=== PATIENT | female | born 1985 | race Asian ===

== ENCOUNTER 2023-07-12 17:43 | Inpatient (IN) ==
[2023-07-12] MEDS ORDERED: SODIUM CHLORIDE 0.9% 250 ML IV PRN (23:47)
[2023-07-12] MEDS ORDERED: OXYTOCIN 30 UNITS/NSS 30 UNITS/500 ML BAG IV PRN ×2 (23:47)
[2023-07-12] MEDS ORDERED: LIDOCAINE 1% LOCAL 20 ML VIAL INFIL PRN (23:47)
[2023-07-13 00:16] LABS: Hematocrit (blood only) 38.5 % (37.0-47.0); Hemoglobin 13.3 g/dl (12.0-16.0); Mean Corpuscular Hemoglobin 32.1 pg (25.0-34.0); Mean Corpuscular Hgb Conc 34.5 g/dL (32.0-36.0); Mean Platelet Volume 11.9 fL (9.4-12.4); Platelet Count 167 K/uL (130-400); RDW Coefficient of Variation 14.9 % (11.5-14.5); RDW Standard Deviation 50.8 fL (36.4-46.3); Red Blood Count 4.14 M/uL (4.20-5.40); White Blood Count 7.58 K/ul (4.8-10.8)
--- NOTE | 2023-07-13 00:36 | History & Physical Report ---
Date of Service July 13, 2023 Assessment & Plan (1) Insulin controlled gestational diabetes mellitus (GDM) during : (2) Fibroids: (3) Hypothyroid in , antepartum: Plan 38 yo at 41 wga presents for IOL for A2GDM VSS Fetus cat 1 Labor - 35cc pichardo placed, pt tolerated well. Will start pit A2GDM - q2h bg, q1 in active labor GBS neg epidural prn Admission and Anticipated Discharge Date Admission Date: July 12, 2023 History of Present Illness Chief Complaint: IOL Primary Care Provider: Faviola Duke MD 38 yo at 41 wga presents for IOL for A2GDM. +FM; denies regular ctx, LOF, VB PNI: A2GDM Hx laparoscopic myomectomy for pedunculated fibroid Hypothyroid AMA Past CLAIMS PROCESSOR Hx: G1 2021 sab G2 current q31-33d cycles 12/2022 neg cotest Allergies Allergy/AdvReac Type Severity Reaction Status Date / Time Latex, Natural Rubber Allergy Mild Rash Verified 07/12/23 23:44 Sulfa (Sulfonamide AdvReac Mild flu like Verified 07/12/23 23:44 Antibiotics) symptoms Home Medications Medication Instructions Recorded Confirmed Type cgyetfzr-lqd-Hj-FA 1 mg 1 tab PO BID 05/14/22 07/12/23 History tablet aspirin 81 mg tablet,delayed 81 mg PO DAILY #30 tabs 04/23/23 07/12/23 Rx release levothyroxine 25 mcg tablet 25 mcg PO QAM #90 tabs 04/24/23 07/12/23 Rx blood-glucose sensor (FreeStyle #2 ea 05/20/23 07/11/23 Rx Abimael 3 Sensor device) pen needle, diabetic 32 gauge x #100 ea 06/07/23 07/11/23 Rx 5/32" (BD Ultra-Fine María Pen Needle) Patient History Medical History (Updated 07/12/23 @ 23:43 by Barbara Dewitt RN) Fibroid, uterine Right lateral fibroid 7cm Gestational diabetes On insulin Hypothyroid on medications History of chicken pox Hemoperitoneum Surgical History S/P myomectomy laparoscopic, did not disrupt myometrium per 05/2022 note Status post hysteroscopic polypectomy H/O wisdom tooth extraction Family History Mother Depression Hypertension Dyslipidemia Father Dementia Diabetes Gout Kidney disease Brother No problems noted. Brother No problems noted. Brother No problems noted. Sister No problems noted. 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 Beliefs That Will Affect Care: None marital status: marital status details: Asa Zimmerman (35) [phone] Current Living Situation: Spouse Current Living Situation Comment: Lives with Asa current occupational status: employed current occupation: [employer] How many Children do You have: 0 Feels Safe at Home: Yes Safety Concerns: Feels Safe At This Time Childhood Exposure to Second-Hand Smoke: Yes Diet: regular caffeine: No during the past year weight has: increased > 10 lbs Dental Care, Regularly: Yes Physical Activity Frequency: 1-2 Times per Week Seatbelt Use: always Sunscreen Use: Yes Assistive Devices: None Physical Exam Genitourinary: OB Exam Abdomen: + vertex and + estimated weight (8) Manual OB Exam: + cervical dilation 1 cm, + cervical effacement 50% and + station high OB Exam Monitor Tracing: + external FHT monitor used, + external uterine monitor used and + category I 35cc pichardo placed, pt tolerated well Results & Data Vital Signs (Past 12 Hours) Vital Signs Temp Pulse Resp BP 07/12/23 23:42 97.9 F 18 07/12/23 23:33 65 119/69 Laboratory Results OB Labs: Blood Type AB Positive 12/14/22 Antibody Screen NEGATIVE 12/14/22 Hemoglobin 12.3 g/dl (12.0-16.0) 04/25/23 Hematocrit 37.8 % (37.0-47.0) 04/25/23 Mean Corpuscular Volume 94.7 fL (80.0-100.0) 12/14/22 Platelet Count 235 K/uL (130-400) 12/14/22 Rubella IgG Antibody Immune (Immune) 12/14/22 Rapid Plasma Reagin Nonreactive (Nonreactive) 12/14/22 Hepatitis B Surface Antigen. NON-REACTIVE (NON-REACTIVE) 12/14/22 Hepatitis C Antibody (EIA) NON-REACTIVE (NON-REACTIVE) 12/14/22 HIV (1&2) Ag and Ab Confirmation NON-REACTIVE (NON-REACTIVE) 12/14/22 Glucose 1 Hour 50 gm Load 220 mg/dl (70-130) H 04/25/23 OB Optional Labs: Chlamydia trachomatis RNA Not Detected (NotDetected) 12/13/22 Neisseria gonorrhoeae RNA Not Detected (NotDetected) 12/13/22 Thyroid Stimulating Hormone (TSH) 0.143 uIu/ml (0.300-4.500) L 05/23/23 Labs Reviewed: -declines cfdna, horizon - sln declines qs--akh GBS neg Diagnostic Findings 06/20 EFW 85%, ~4.7cm fibroid, ant plac Coding Level of Care Code None Diagnoses Insulin controlled gestational diabetes mellitus (GDM) during O24.414 Fibroids D21.9 Hypothyroid in , antepartum O99.280; E03.9
[2023-07-13] MEDS: LACTATED RINGER'S 1,000 ML IV PRN ×3 (01:00→16:17)
[2023-07-13] MEDS ORDERED: BUTORPHANOL TARTRATE 1 MG/ML VIAL ONE (06:40)
[2023-07-13] MEDS ORDERED: BUTORPHANOL TARTRATE 1 MG/ML VIAL IV STA (06:41)
[2023-07-13] MEDS ORDERED: ePHEDrine sulfate 50 MG/ML AMP ONE (07:36)
[2023-07-13] MEDS ORDERED: BUPIVACAINE 0.25% PF 30 ML VIAL ONE (07:36)
[2023-07-13] MEDS ORDERED: LIDOCAINE 2%/EPINEPHRINE 1:200,000 20 ML PF ONE (07:36)
[2023-07-13] MEDS ORDERED: SODIUM CHLORIDE 0.9% PF INJ 10 ML VIAL ONE (07:36)
[2023-07-13] MEDS ORDERED: fentaNYL citrate PF 100 MCG/2 ML VIAL ONE (07:36)
[2023-07-13] MEDS ORDERED: fentANYL 2 MCG/ML BUPIVacaine 0.125%-NSS 100ML BAG ONE (07:36)
--- NOTE | 2023-07-13 07:40 | Anesthesiology Consultation ---
Date of Service July 13, 2023 Assessment & Plan Chart Review Chart Review: Acceptable Risk for Surgery and Patient NOT seen in Pre Admission Testing Consults Requested none ASA ASA2 Proposed Anesthesia Anesthesia Type: Labor Epidural and CSE History Height/Weight Height: 5 ft 5 in Weight: 63.049 kg Allergies Allergy/AdvReac Type Severity Reaction Status Date / Time Latex, Natural Rubber Allergy Mild Rash Verified 07/12/23 23:44 Sulfa (Sulfonamide AdvReac Mild flu like Verified 07/12/23 23:44 Antibiotics) symptoms Medications Home Medications Medication Instructions Recorded Confirmed Last Taken fdzujiyf-gwg-Kk-FA 1 mg 1 tab PO BID 05/14/22 07/12/23 07/12/23 tablet aspirin 81 mg tablet,delayed 81 mg PO DAILY #30 tabs 04/23/23 07/12/23 07/12/23 release levothyroxine 25 mcg tablet 25 mcg PO QAM #90 tabs 04/24/23 07/12/23 07/12/23 blood-glucose sensor (FreeStyle #2 ea 05/20/23 07/11/23 Unknown Abimael 3 Sensor device) pen needle, diabetic 32 gauge x #100 ea 06/07/23 07/11/23 Unknown " (BD Ultra-Fine María Pen Needle) Active Medications Generic Name Dose Route Start Last Admin Trade Name Lisa PRN Reason Stop Dose Admin Oxytocin 30 units in 500 mls @ 12 mls/hr 07/12/23 23:47 07/13/23 07:01 Pitocin 30 Units/Nss IV 07/14/23 23:46 0.72 units/hr .Q24H PRN 12 mls/hr Labor Induction/Augmentation Titration Protocol 0.72 UNITS/HR Lactated Ringer's 1,000 mls @ 125 mls/hr 07/12/23 23:47 07/13/23 07:01 Lr IV 07/14/23 23:46 125 mls/hr .Q8H PRN Infusion L&D Protocol Protocol Past Medical History Medical History Fibroid, uterine Right lateral fibroid 7cm Gestational diabetes On insulin Hypothyroid on medications History of chicken pox Hemoperitoneum Exercise / Class Metabolic Activity II 4-5 Yardwork/Stairs/Walk up hill Past Family History Family History Mother Depression Hypertension Dyslipidemia Father Dementia Diabetes Gout Kidney disease Brother No problems noted. Brother No problems noted. Brother No problems noted. Sister No problems noted. Denies family history of Ovarian cancer Prostate cancer Myocardial infarction Breast cancer Colorectal cancer Past Surgical History Surgical History S/P myomectomy laparoscopic, did not disrupt myometrium per 05/2022 note Status post hysteroscopic polypectomy H/O wisdom tooth extraction Past Anesthesia History No Hx of Anesthesia Complications and No Family Hx of Anesthesia Complications History of PONV No Hx of PONV and No Hx of Motion Sickness Social History Smoking Status: Never smoker Do You Dip or Chew Tobacco: No Hx Alcohol Use: No Hx Substance Use: No substance use type: does not use Physical Exam Vital Signs Last Vital Signs Temp 36.4 C L 07/13/23 07:00 Pulse 64 07/13/23 07:04 Resp 16 07/13/23 07:00 BP 123/77 07/13/23 07:04 Testing Laboratory Results 07/13/23 00:03 Blood Type AB Positive 07/13/23 00:03 Antibody Screen NEGATIVE 07/13/23 00:03 07/13/23 07/13/23 02:32 00:38 POC Glucose 84 88
[2023-07-13] MEDS ORDERED: NALBUPHINE HCL 5 MG in SYRINGE 0 ML IV PRN (08:31)
[2023-07-13] MEDS ORDERED: fentANYL 2 MCG/ML BUPIVacaine 0.125%-NSS 100ML BAG EPI PRN (08:31)
[2023-07-13] MEDS ORDERED: diphenhydrAMINE 50 MG/ML VIAL IV PRN (08:31)
[2023-07-13] MEDS ORDERED: fentaNYL citrate PF 100 MCG/2 ML VIAL EPI STA (08:31)
[2023-07-13] MEDS ORDERED: PROMETHAZINE HCL 25 MG in SODIUM CHLORIDE 0.9% 50 ML IV PRN (08:31)
[2023-07-13] MEDS ORDERED: LIDOCAINE 2% MPF LOCAL 5 ML VIAL EPI PRN (08:31)
[2023-07-13] MEDS ORDERED: BUPIVACAINE 0.25% PF 30 ML VIAL EPI PRN (08:31)
[2023-07-13] MEDS ORDERED: ONDANSETRON INJ 2 MG/ML 2 ML VIAL IV PRN (08:31)
[2023-07-13] MEDS ORDERED: NALOXONE HCL 0.4 MG/1 ML VIAL/CARP IV PRN (08:31)
[2023-07-13] MEDS ORDERED: ePHEDrine sulfate 50 MG/ML AMP IV PRN (08:31)
[2023-07-13] MEDS ORDERED: SODIUM CHLORIDE 0.9% PF INJ 10 ML VIAL EPI PRN (08:31)
[2023-07-13] MEDS ORDERED: BUPIVACAINE 0.25% PF 30 ML VIAL EPI STA (08:31)
[2023-07-13] MEDS ORDERED: NALOXONE HCL 1 MG in SODIUM CHLORIDE 0.9% 1,000 ML IV PRN (08:31)
[2023-07-13] MEDS ORDERED: ROPIVACAINE 0.5% PF 5 MG/ML 20 ML VIAL EPI PRN (08:31)
[2023-07-13] MEDS ORDERED: LIDOCAINE 2%/EPINEPHRINE 1:200,000 20 ML PF EPI STA (08:31)
[2023-07-13] MEDS ORDERED: SODIUM CHLORIDE 0.9% PF INJ 10 ML VIAL EPI STA (08:31)
[2023-07-13] MEDS ORDERED: fentaNYL citrate PF 100 MCG/2 ML VIAL EPI PRN (08:31)
--- NOTE | 2023-07-13 13:01 | Labor Progress Brief Note ---
Date of Service July 13, 2023 Subjective Comfortable with epidural, some pressure. SVE 6/80/0 FHT Cat 1 [place] Q 2 SROM clear fluid Assessment & Plan Admission and Anticipated Discharge Date Admission Date: July 12, 2023 Results & Data Vital Signs (Past 12 Hours) Vital Signs Temp Pulse Resp BP Pulse Ox 07/13/23 12:58 64 100 07/13/23 12:53 68 100 07/13/23 12:52 65 126/74 07/13/23 12:48 59 L 100 07/13/23 12:43 73 100 07/13/23 12:38 66 100 07/13/23 12:37 67 107/60 07/13/23 12:33 69 100 07/13/23 12:28 69 100 07/13/23 12:23 67 100 07/13/23 12:21 66 121/75 07/13/23 12:18 71 99 07/13/23 12:13 67 100 07/13/23 12:08 67 100 07/13/23 12:06 65 110/68 07/13/23 12:03 66 100 07/13/23 11:58 66 100 07/13/23 11:53 65 100 07/13/23 11:51 65 110/71 07/13/23 11:48 65 100 07/13/23 11:43 66 100 07/13/23 11:38 63 100 07/13/23 11:37 64 117/69 07/13/23 11:33 64 100 07/13/23 11:28 64 100 07/13/23 11:23 64 100 07/13/23 11:21 64 110/71 07/13/23 11:18 64 100 07/13/23 11:13 65 100 07/13/23 11:08 66 100 07/13/23 11:06 65 119/70 07/13/23 11:03 64 100 07/13/23 10:58 67 100 07/13/23 10:53 68 100 07/13/23 10:51 71 122/81 07/13/23 10:48 66 99 07/13/23 10:43 66 99 07/13/23 10:38 70 100 07/13/23 10:36 69 108/70 07/13/23 10:33 67 100 07/13/23 10:28 67 99 07/13/23 10:23 71 99 07/13/23 10:21 62 111/70 07/13/23 10:18 62 99 07/13/23 10:15 18 07/13/23 10:15 36.4 C L 18 07/13/23 10:13 71 99 07/13/23 10:08 67 99 07/13/23 10:07 63 100/58 L 07/13/23 10:03 63 99 07/13/23 09:58 65 99 07/13/23 09:53 62 99 07/13/23 09:50 65 97/57 L 07/13/23 09:48 62 98 07/13/23 09:43 62 98 07/13/23 09:38 60 98 07/13/23 09:35 62 101/59 L 07/13/23 09:33 57 L 97 07/13/23 09:28 65 98 07/13/23 09:23 64 98 07/13/23 09:20 62 99/57 L 07/13/23 09:18 63 98 07/13/23 09:13 62 98 07/13/23 09:08 62 98 07/13/23 09:06 63 102/60 07/13/23 09:03 64 98 07/13/23 08:58 68 98 07/13/23 08:53 64 98 07/13/23 08:50 61 101/55 L 07/13/23 08:48 65 98 07/13/23 08:43 67 99 07/13/23 08:38 65 99 07/13/23 08:35 62 104/57 L 07/13/23 08:33 67 99 07/13/23 08:32 67 100/55 L 07/13/23 08:29 68 99/55 L 07/13/23 08:28 100 07/13/23 08:28 68 07/13/23 08:28 70 101/59 L 07/13/23 08:26 67 108/60 07/13/23 08:25 60 102/59 L 07/13/23 08:23 69 101/59 L 99 07/13/23 08:21 68 112/62 07/13/23 08:20 68 117/68 07/13/23 08:18 64 100 07/13/23 08:17 69 128/78 07/13/23 08:13 69 100 12/09/23 08:11 70 130/78 07/13/23 08:08 72 100 07/13/23 08:03 68 124/75 99 07/13/23 07:58 67 100 07/13/23 07:53 69 98 07/13/23 07:50 64 110/74 07/13/23 07:48 67 98 07/13/23 07:43 65 99 07/13/23 07:04 64 123/77 07/13/23 07:00 16 07/13/23 07:00 36.4 C L 16 07/13/23 06:02 61 107/68 07/13/23 05:02 68 104/61 07/13/23 04:02 65 107/68 07/13/23 03:02 65 117/65 07/13/23 03:00 18 07/13/23 03:00 36.6 C 18 07/13/23 02:02 65 107/58 L 07/13/23 01:02 63 120/74 Coding Level of Care Code None
--- NOTE | 2023-07-13 16:55 | Labor Progress Brief Note ---
Date of Service July 13, 2023 Subjective FHT Cat 1, [place] Q 2 SVE 9/100/+1 Continue labor, will begin to push when she feels urge. Assessment & Plan Admission and Anticipated Discharge Date Admission Date: July 12, 2023 Results & Data Vital Signs (Past 12 Hours) Vital Signs Temp Pulse Resp BP Pulse Ox 07/13/23 16:51 75 128/62 07/13/23 16:48 75 100 07/13/23 16:43 77 100 07/13/23 16:38 75 99 07/13/23 16:36 76 117/65 07/13/23 16:33 79 100 07/13/23 16:28 75 100 07/13/23 16:23 76 100 07/13/23 16:20 75 118/70 07/13/23 16:18 74 100 07/13/23 16:13 77 100 07/13/23 16:08 74 100 07/13/23 16:05 74 119/74 07/13/23 16:03 78 99 07/13/23 15:58 78 99 07/13/23 15:53 75 99 07/13/23 15:52 73 119/71 07/13/23 15:48 74 100 07/13/23 15:43 78 100 07/13/23 15:38 77 100 07/13/23 15:37 74 111/66 07/13/23 15:33 77 99 07/13/23 15:28 76 99 07/13/23 15:23 76 100 07/13/23 15:22 72 117/68 07/13/23 15:18 78 98 07/13/23 15:13 73 100 07/13/23 15:08 75 100 07/13/23 15:05 73 115/69 07/13/23 15:03 70 100 07/13/23 14:58 71 100 07/13/23 14:53 71 100 07/13/23 14:51 70 117/67 07/13/23 14:48 72 100 07/13/23 14:43 73 100 07/13/23 14:38 73 100 07/13/23 14:36 73 122/71 07/13/23 14:33 74 100 07/13/23 14:28 71 100 07/13/23 14:23 81 100 07/13/23 14:22 77 129/77 07/13/23 14:18 85 100 07/13/23 14:13 73 100 07/13/23 14:08 81 96 07/13/23 14:07 71 125/74 07/13/23 14:03 69 100 07/13/23 13:58 75 100 07/13/23 13:53 67 100 07/13/23 13:51 70 121/70 07/13/23 13:48 70 99 07/13/23 13:43 65 99 07/13/23 13:38 68 100 07/13/23 13:36 67 119/67 07/13/23 13:33 66 100 07/13/23 13:28 67 100 07/13/23 13:23 68 100 07/13/23 13:20 64 117/71 07/13/23 13:18 69 100 07/13/23 13:13 67 100 07/13/23 13:08 68 100 07/13/23 13:07 68 120/75 07/13/23 13:03 68 100 07/13/23 12:58 64 100 07/13/23 12:53 68 100 07/13/23 12:52 65 126/74 07/13/23 12:48 59 L 100 07/13/23 12:43 73 100 07/13/23 12:38 66 100 07/13/23 12:37 67 107/60 07/13/23 12:33 69 100 07/13/23 12:28 69 100 07/13/23 12:23 67 100 07/13/23 12:21 66 121/75 07/13/23 12:18 71 99 07/13/23 12:13 67 100 07/13/23 12:08 67 100 07/13/23 12:06 65 110/68 07/13/23 12:03 66 100 07/13/23 11:58 66 100 07/13/23 11:53 65 100 07/13/23 11:51 65 110/71 07/13/23 11:48 65 100 07/13/23 11:43 66 100 07/13/23 11:38 63 100 07/13/23 11:37 64 117/69 07/13/23 11:33 64 100 07/13/23 11:28 64 100 07/13/23 11:23 64 100 07/13/23 11:21 64 110/71 07/13/23 11:18 64 100 07/13/23 11:13 65 100 07/13/23 11:08 66 100 07/13/23 11:06 65 119/70 07/13/23 11:03 64 100 07/13/23 10:58 67 100 07/13/23 10:53 68 100 07/13/23 10:51 71 122/81 07/13/23 10:48 66 99 07/13/23 10:43 66 99 07/13/23 10:38 70 100 07/13/23 10:36 69 108/70 07/13/23 10:33 67 100 07/13/23 10:28 67 99 07/13/23 10:23 71 99 07/13/23 10:21 62 111/70 07/13/23 10:18 62 99 07/13/23 10:15 18 07/13/23 10:15 36.4 C L 18 07/13/23 10:13 71 99 07/13/23 10:08 67 99 07/13/23 10:07 63 100/58 L 07/13/23 10:03 63 99 07/13/23 09:58 65 99 07/13/23 09:53 62 99 07/13/23 09:50 65 97/57 L 07/13/23 09:48 62 98 07/13/23 09:43 62 98 07/13/23 09:38 60 98 07/13/23 09:35 62 101/59 L 07/13/23 09:33 57 L 97 07/13/23 09:28 65 98 07/13/23 09:23 64 98 07/13/23 09:20 62 99/57 L 07/13/23 09:18 63 98 07/13/23 09:13 62 98 07/13/23 09:08 62 98 07/13/23 09:06 63 102/60 07/13/23 09:03 64 98 07/13/23 08:58 68 98 07/13/23 08:53 64 98 07/13/23 08:50 61 101/55 L 07/13/23 08:48 65 98 07/13/23 08:43 67 99 07/13/23 08:38 65 99 07/13/23 08:35 62 104/57 L 07/13/23 08:33 67 99 07/13/23 08:32 67 100/55 L 07/13/23 08:29 68 99/55 L 07/13/23 08:28 100 07/13/23 08:28 68 07/13/23 08:28 70 101/59 L 07/13/23 08:26 67 108/60 07/13/23 08:25 60 102/59 L 07/13/23 08:23 69 101/59 L 99 07/13/23 08:21 68 112/62 07/13/23 08:20 68 117/68 07/13/23 08:18 64 100 07/13/23 08:17 69 128/78 07/13/23 08:13 69 100 07/13/23 08:11 70 130/78 07/13/23 08:08 72 100 07/13/23 08:03 68 124/75 99 07/13/23 07:58 67 100 07/13/23 07:53 69 98 07/13/23 07:50 64 110/74 07/13/23 07:48 67 98 07/13/23 07:43 65 99 07/13/23 07:04 64 123/77 07/13/23 07:00 16 07/13/23 07:00 36.4 C L 16 07/13/23 06:02 61 107/68 07/13/23 05:02 68 104/61 Coding Level of Care Code None
--- NOTE | 2023-07-13 18:47 | Labor Progress Brief Note ---
Date of Service July 13, 2023 Assessment & Plan Admission and Anticipated Discharge Date Admission Date: July 12, 2023 Physical Exam Physical Exam: Feeling cramping with contractions. FHT Cat 1 [place] Q 2 SVE 10/100/+1 Will start pushing. Results & Data Vital Signs (Past 12 Hours) Vital Signs Temp Pulse Resp BP Pulse Ox 07/13/23 18:44 83 100 07/13/23 18:41 93 H 91 07/13/23 18:38 83 99 07/13/23 18:37 80 128/56 L 07/13/23 18:33 79 99 07/13/23 18:28 77 100 07/13/23 18:23 84 100 07/13/23 18:21 82 127/71 07/13/23 18:18 77 100 07/13/23 18:13 78 99 07/13/23 18:08 77 99 07/13/23 18:05 82 128/71 07/13/23 18:03 79 100 07/13/23 17:58 85 100 07/13/23 17:53 76 99 07/13/23 17:51 78 123/64 07/13/23 17:48 82 100 07/13/23 17:45 16 07/13/23 17:45 36.9 C 16 07/13/23 17:43 76 99 07/13/23 17:38 80 100 07/13/23 17:37 79 130/67 07/13/23 17:33 76 100 07/13/23 17:28 79 98 07/13/23 17:23 98 07/13/23 17:23 82 07/13/23 17:23 79 109/61 07/13/23 17:18 79 99 07/13/23 17:13 77 100 07/13/23 17:08 83 100 07/13/23 17:07 77 128/66 07/13/23 17:03 76 99 07/13/23 16:58 79 99 07/13/23 16:53 77 100 07/13/23 16:51 75 128/62 07/13/23 16:48 75 100 07/13/23 16:43 77 100 07/13/23 16:38 75 99 07/13/23 16:36 76 117/65 07/13/23 16:33 79 100 12/09/23 16:28 75 100 07/13/23 16:23 76 100 07/13/23 16:20 75 118/70 07/13/23 16:18 74 100 07/13/23 16:13 77 100 07/13/23 16:08 74 100 07/13/23 16:05 74 119/74 07/13/23 16:03 78 99 07/13/23 15:58 78 99 07/13/23 15:53 75 99 07/13/23 15:52 73 119/71 07/13/23 15:48 74 100 07/13/23 15:43 78 100 07/13/23 15:38 77 100 07/13/23 15:37 74 111/66 07/13/23 15:33 77 99 07/13/23 15:28 76 99 07/13/23 15:23 76 100 07/13/23 15:22 72 117/68 07/13/23 15:18 78 98 07/13/23 15:13 73 100 07/13/23 15:08 75 100 07/13/23 15:05 73 115/69 07/13/23 15:03 70 100 07/13/23 14:58 71 100 07/13/23 14:53 71 100 07/13/23 14:51 70 117/67 07/13/23 14:48 72 100 07/13/23 14:43 73 100 07/13/23 14:38 73 100 07/13/23 14:36 73 122/71 07/13/23 14:33 74 100 07/13/23 14:28 71 100 07/13/23 14:23 81 100 07/13/23 14:22 77 129/77 07/13/23 14:18 85 100 07/13/23 14:13 73 100 07/13/23 14:08 81 96 07/13/23 14:07 71 125/74 07/13/23 14:03 69 100 07/13/23 13:58 75 100 07/13/23 13:53 67 100 07/13/23 13:51 70 121/70 07/13/23 13:48 70 99 07/13/23 13:43 65 99 07/13/23 13:38 68 100 07/13/23 13:36 67 119/67 07/13/23 13:33 66 100 07/13/23 13:28 67 100 07/13/23 13:23 68 100 07/13/23 13:20 64 117/71 07/13/23 13:18 69 100 07/13/23 13:13 67 100 07/13/23 13:08 68 100 07/13/23 13:07 68 120/75 07/13/23 13:03 68 100 07/13/23 12:58 64 100 07/13/23 12:53 68 100 07/13/23 12:52 65 126/74 07/13/23 12:48 59 L 100 07/13/23 12:43 73 100 07/13/23 12:38 66 100 07/13/23 12:37 67 107/60 07/13/23 12:33 69 100 07/13/23 12:28 69 100 07/13/23 12:23 67 100 07/13/23 12:21 66 121/75 07/13/23 12:18 71 99 07/13/23 12:13 67 100 07/13/23 12:08 67 100 07/13/23 12:06 65 110/68 07/13/23 12:03 66 100 07/13/23 11:58 66 100 07/13/23 11:53 65 100 07/13/23 11:51 65 110/71 07/13/23 11:48 65 100 07/13/23 11:43 66 100 07/13/23 11:38 63 100 07/13/23 11:37 64 117/69 07/13/23 11:33 64 100 07/13/23 11:28 64 100 07/13/23 11:23 64 100 07/13/23 11:21 64 110/71 07/13/23 11:18 64 100 07/13/23 11:13 65 100 07/13/23 11:08 66 100 07/13/23 11:06 65 119/70 07/13/23 11:03 64 100 07/13/23 10:58 67 100 07/13/23 10:53 68 100 07/13/23 10:51 71 122/81 07/13/23 10:48 66 99 07/13/23 10:43 66 99 07/13/23 10:38 70 100 07/13/23 10:36 69 108/70 07/13/23 10:33 67 100 07/13/23 10:28 67 99 07/13/23 10:23 71 99 07/13/23 10:21 62 111/70 07/13/23 10:18 62 99 07/13/23 10:15 18 07/13/23 10:15 36.4 C L 18 07/13/23 10:13 71 99 07/13/23 10:08 67 99 07/13/23 10:07 63 100/58 L 07/13/23 10:03 63 99 07/13/23 09:58 65 99 07/13/23 09:53 62 99 07/13/23 09:50 65 97/57 L 07/13/23 09:48 62 98 07/13/23 09:43 62 98 07/13/23 09:38 60 98 07/13/23 09:35 62 101/59 L 07/13/23 09:33 57 L 97 07/13/23 09:28 65 98 07/13/23 09:23 64 98 07/13/23 09:20 62 99/57 L 07/13/23 09:18 63 98 07/13/23 09:13 62 98 07/13/23 09:08 62 98 07/13/23 09:06 63 102/60 07/13/23 09:03 64 98 07/13/23 08:58 68 98 07/13/23 08:53 64 98 07/13/23 08:50 61 101/55 L 07/13/23 08:48 65 98 07/13/23 08:43 67 99 07/13/23 08:38 65 99 07/13/23 08:35 62 104/57 L 07/13/23 08:33 67 99 07/13/23 08:32 67 100/55 L 07/13/23 08:29 68 99/55 L 07/13/23 08:28 100 07/13/23 08:28 68 07/13/23 08:28 70 101/59 L 07/13/23 08:26 67 108/60 07/13/23 08:25 60 102/59 L 07/13/23 08:23 69 101/59 L 99 07/13/23 08:21 68 112/62 07/13/23 08:20 68 117/68 07/13/23 08:18 64 100 07/13/23 08:17 69 128/78 07/13/23 08:13 69 100 07/13/23 08:11 70 130/78 07/13/23 08:08 72 100 07/13/23 08:03 68 124/75 99 07/13/23 07:58 67 100 07/13/23 07:53 69 98 07/13/23 07:50 64 110/74 07/13/23 07:48 67 98 07/13/23 07:43 65 99 07/13/23 07:04 64 123/77 07/13/23 07:00 16 07/13/23 07:00 36.4 C L 16 Coding Level of Care Code None
--- NOTE | 2023-07-13 19:54 | Labor Progress Brief Note ---
Date of Service July 13, 2023 Subjective Patient has pushed for 1 hour, exhausted, requesting to labor down. FHT Cat 1 [place] Q 2 Will labor down, then begin pushing again. Assessment & Plan Admission and Anticipated Discharge Date Admission Date: July 12, 2023 Results & Data Vital Signs (Past 12 Hours) Vital Signs Temp Pulse Resp BP Pulse Ox 07/13/23 19:51 85 116/55 L 07/13/23 19:49 86 100 07/13/23 19:44 90 100 07/13/23 19:39 87 100 07/13/23 19:37 84 117/57 L 07/13/23 19:34 86 98 07/13/23 19:33 96 H 89 L 07/13/23 19:29 86 99 07/13/23 19:28 103 H 93 07/13/23 19:24 84 99 07/13/23 19:22 81 134/63 07/13/23 19:21 100 H 89 L 07/13/23 19:19 83 99 07/13/23 19:14 83 99 07/13/23 19:10 18 07/13/23 19:10 36.8 C 18 07/13/23 19:09 80 99 07/13/23 19:07 81 129/63 07/13/23 19:06 101 H 91 07/13/23 19:05 36.8 C 18 07/13/23 19:04 82 99 07/13/23 18:59 81 99 07/13/23 18:54 79 99 07/13/23 18:52 89 93 07/13/23 18:51 81 130/70 07/13/23 18:49 82 100 07/13/23 18:44 83 100 07/13/23 18:41 93 H 91 07/13/23 18:38 83 99 07/13/23 18:37 80 128/56 L 07/13/23 18:33 79 99 07/13/23 18:28 77 100 07/13/23 18:23 84 100 07/13/23 18:21 82 127/71 07/13/23 18:18 77 100 07/13/23 18:13 78 99 07/13/23 18:08 77 99 07/13/23 18:05 82 128/71 07/13/23 18:03 79 100 07/13/23 17:58 85 100 07/13/23 17:53 76 99 07/13/23 17:51 78 123/64 07/13/23 17:48 82 100 07/13/23 17:45 16 07/13/23 17:45 36.9 C 16 07/13/23 17:43 76 99 07/13/23 17:38 80 100 07/13/23 17:37 79 130/67 07/13/23 17:33 76 100 07/13/23 17:28 79 98 07/13/23 17:23 98 07/13/23 17:23 82 07/13/23 17:23 79 109/61 07/13/23 17:18 79 99 07/13/23 17:13 77 100 07/13/23 17:08 83 100 07/13/23 17:07 77 128/66 07/13/23 17:03 76 99 07/13/23 16:58 79 99 07/13/23 16:53 77 100 07/13/23 16:51 75 128/62 07/13/23 16:48 75 100 07/13/23 16:43 77 100 07/13/23 16:38 75 99 07/13/23 16:36 76 117/65 07/13/23 16:33 79 100 07/13/23 16:28 75 100 07/13/23 16:23 76 100 07/13/23 16:20 75 118/70 07/13/23 16:18 74 100 07/13/23 16:13 77 100 07/13/23 16:08 74 100 07/13/23 16:05 74 119/74 07/13/23 16:03 78 99 07/13/23 15:58 78 99 07/13/23 15:53 75 99 07/13/23 15:52 73 119/71 07/13/23 15:48 74 100 07/13/23 15:43 78 100 07/13/23 15:38 77 100 07/13/23 15:37 74 111/66 07/13/23 15:33 77 99 07/13/23 15:28 76 99 07/13/23 15:23 76 100 07/13/23 15:22 72 117/68 07/13/23 15:18 78 98 07/13/23 15:13 73 100 07/13/23 15:08 75 100 07/13/23 15:05 73 115/69 07/13/23 15:03 70 100 07/13/23 14:58 71 100 07/13/23 14:53 71 100 07/13/23 14:51 70 117/67 07/13/23 14:48 72 100 07/13/23 14:43 73 100 07/13/23 14:38 73 100 07/13/23 14:36 73 122/71 07/13/23 14:33 74 100 07/13/23 14:28 71 100 07/13/23 14:23 81 100 07/13/23 14:22 77 129/77 07/13/23 14:18 85 100 07/13/23 14:13 73 100 07/13/23 14:08 81 96 07/13/23 14:07 71 125/74 07/13/23 14:03 69 100 07/13/23 13:58 75 100 07/13/23 13:53 67 100 07/13/23 13:51 70 121/70 07/13/23 13:48 70 99 07/13/23 13:43 65 99 07/13/23 13:38 68 100 07/13/23 13:36 67 119/67 07/13/23 13:33 66 100 07/13/23 13:28 67 100 07/13/23 13:23 68 100 07/13/23 13:20 64 117/71 07/13/23 13:18 69 100 07/13/23 13:13 67 100 07/13/23 13:08 68 100 07/13/23 13:07 68 120/75 07/13/23 13:03 68 100 07/13/23 12:58 64 100 07/13/23 12:53 68 100 07/13/23 12:52 65 126/74 07/13/23 12:48 59 L 100 07/13/23 12:43 73 100 07/13/23 12:38 66 100 07/13/23 12:37 67 107/60 07/13/23 12:33 69 100 07/13/23 12:28 69 100 07/13/23 12:23 67 100 07/13/23 12:21 66 121/75 07/13/23 12:18 71 99 07/13/23 12:13 67 100 07/13/23 12:08 67 100 07/13/23 12:06 65 110/68 07/13/23 12:03 66 100 07/13/23 11:58 66 100 07/13/23 11:53 65 100 07/13/23 11:51 65 110/71 07/13/23 11:48 65 100 07/13/23 11:43 66 100 07/13/23 11:38 63 100 07/13/23 11:37 64 117/69 07/13/23 11:33 64 100 07/13/23 11:28 64 100 07/13/23 11:23 64 100 07/13/23 11:21 64 110/71 07/13/23 11:18 64 100 07/13/23 11:13 65 100 07/13/23 11:08 66 100 07/13/23 11:06 65 119/70 07/13/23 11:03 64 100 07/13/23 10:58 67 100 07/13/23 10:53 68 100 07/13/23 10:51 71 122/81 07/13/23 10:48 66 99 07/13/23 10:43 66 99 07/13/23 10:38 70 100 07/13/23 10:36 69 108/70 07/13/23 10:33 67 100 07/13/23 10:28 67 99 07/13/23 10:23 71 99 07/13/23 10:21 62 111/70 07/13/23 10:18 62 99 07/13/23 10:15 18 07/13/23 10:15 36.4 C L 18 07/13/23 10:13 71 99 07/13/23 10:08 67 99 07/13/23 10:07 63 100/58 L 07/13/23 10:03 63 99 07/13/23 09:58 65 99 07/13/23 09:53 62 99 07/13/23 09:50 65 97/57 L 07/13/23 09:48 62 98 07/13/23 09:43 62 98 07/13/23 09:38 60 98 07/13/23 09:35 62 101/59 L 07/13/23 09:33 57 L 97 07/13/23 09:28 65 98 12/09/23 09:23 64 98 07/13/23 09:20 62 99/57 L 07/13/23 09:18 63 98 07/13/23 09:13 62 98 07/13/23 09:08 62 98 07/13/23 09:06 63 102/60 07/13/23 09:03 64 98 07/13/23 08:58 68 98 07/13/23 08:53 64 98 07/13/23 08:50 61 101/55 L 07/13/23 08:48 65 98 07/13/23 08:43 67 99 07/13/23 08:38 65 99 07/13/23 08:35 62 104/57 L 07/13/23 08:33 67 99 07/13/23 08:32 67 100/55 L 07/13/23 08:29 68 99/55 L 07/13/23 08:28 100 07/13/23 08:28 68 07/13/23 08:28 70 101/59 L 07/13/23 08:26 67 108/60 07/13/23 08:25 60 102/59 L 07/13/23 08:23 69 101/59 L 99 07/13/23 08:21 68 112/62 07/13/23 08:20 68 117/68 07/13/23 08:18 64 100 07/13/23 08:17 69 128/78 07/13/23 08:13 69 100 07/13/23 08:11 70 130/78 07/13/23 08:08 72 100 07/13/23 08:03 68 124/75 99 07/13/23 07:58 67 100 07/13/23 07:53 69 98 Coding Level of Care Code None
[2023-07-13] MEDS: OXYTOCIN 30 UNITS/NSS 30 UNITS/500 ML BAG IV PRN ×2 (21:10→21:43)
[2023-07-13 21:40] LABS: CO2 Cord Arterial Blood 87 mmHg (39.1-73.5); PO2 Cord Arterial Blood < 20 mmHg (4.1-31.7); pH Cord Arterial Blood < 7.00 (7.1-7.38)
[2023-07-13 21:41] LABS: Base Excess Cord Venous Blood -11.6 mEq/L (-7.7-1.9); Cord Venous Blood HCO3 19 mmol/L (18.4-26.8); Cord Venous Blood PCO2 64 mmHg (30.4-57.2); Cord Venous Blood PO2 < 20 mmHg (14.1-43.3); Cord Venous Blood pH 7.09 (7.20-7.44); O2 Saturation Cord Venous Bld < 60.0 % (<68)
[2023-07-13] MEDS ORDERED: oxyCODONE/ACETAMINOPHEN 5mg/325mg TAB PO PRN (21:45)
[2023-07-13] MEDS ORDERED: BENZOCAINE 20% SPRY 85 APPLN/85 GM CAN EXT PRN (21:45)
[2023-07-13] MEDS ORDERED: HYDROCORTISONE ACETATE 25 MG SUPP PR PRN (21:45)
[2023-07-13] MEDS ORDERED: TRANEXAMIC ACID / 0.7% NACL 1,000 MG/100 ML BAG IV STA (21:45)
[2023-07-13] MEDS ORDERED: DIPHTHERIA/TETANUS/PERTUSSIS Vaccine (Tdap, Age 7+yrs) 0.5mL SYR/VL IM ONE (21:45)
[2023-07-13] MEDS ORDERED: METHYLERGONOVINE MALEATE 0.2 MG/ML AMP IM ONE (21:45)
--- NOTE | 2023-07-13 21:48 | Delivery Summary ---
Vaginal Delivery Summary Date of Service July 13, 2023 Vaginal Delivery Summary and 2nd Degree LAC Vaginal Delivery Summary: Pre-delivery diagnoses: 38yo @ 40 0/7, AMA, hypothyroid, h/o laparoscopic myomectomy (pedunculated) with known right lateral fibroid, GDM on insulin Post-delivery diagnoses: same Procedure: spontaneous vaginal delivery, repair of 2nd degree perineal laceration Surgeon: Sabrina Rivera DO Complications: none Findings: Viable male . Apgars: 2, 7, 8. Weight pending, please see nursery records Estimated blood loss: 300ml Description of delivery: The patient progressed to complete with epidural anesthesia. She then began to push. She became exhausted after approximately 1h of pushing, and elected to labor down. She then developed variable decelerations, and recheck of cervix showed +2 station. She showed good pushing effort, and pushed to deliver vaginally a viable from the cephalic presentation. The head delivered in EDDIE position. Nuchal cord x 3, easily reduced. The anterior shoulder delivered, followed by the posterior shoulder, followed by the body. The baby was placed on mother's abdomen, and when the baby did not immediately cry, the baby was stimulated and the cord was doubly clamped and cut and the baby was immediately handed off to the nursery team. A segment was retained for cord gases. Cord blood was obtained. The placenta was delivered spontaneously intact with a 3-vessel cord. The uterus and vagina were swept of clots and debris. IV pitocin was given. The uterus became firm. The cervix, vagina, and perineum were inspected and a 2nd degree perineal laceration and bilateral sulcal vaginal tears were noted - these were repaired in standard fashion with 3-0 Vicryl. 1 dose of methergine and 1 dose of TXA were given, as prophylaxis for bleeding given concern over the uterine fibroid potentially contributing to bleeding. Uterus was firm. Excellent hemostasis was observed. The mother and baby are recovering in stable and good condition in the room. Ba by vigorous, kicking and crying. Sponge, needle and instrument counts were correct x 2. I debriefed patient and regarding the nuchal x 3, need for resuscitation by nursery team, laceration/repair. Sabrina Rivera DO [facility] Vaginal Delivery Charge Vaginal Delivery Codes: 67144 global code for the antepartum, delivery, and post- Delivery Type Details: and 2nd Degree LAC
[2023-07-13] MEDS: ACETAMINOPHEN 325 MG TAB PO PRN (22:14)
--- NOTE | 2023-07-13 22:37 | Anesthesia Procedure Note ---
Date of Service July 13, 2023 Anesthesia Post Epidural Note Vital Signs Vital Signs: Temp Pulse Resp BP Pulse Ox 98.2 F 91 H 18 114/65 98 07/13/23 19:10 07/13/23 22:26 07/13/23 19:10 07/13/23 22:26 07/13/23 21:29 Pain Intensity Abdomen: Pain Intensity: 0 Notes Mental Status: alert / awake / arousable and participated in evaluation Nausea / Vomiting: adequately controlled Pain: adequately controlled Airway Patency, RR, SpO2: stable & adequate BP & HR: stable & adequate Hydration State: stable & adequate Neuraxial Anesthesia: was administered and sensory block is resolving Anesthetic Complications: no major complications apparent and Pt Satisfied with anesthetic care Epidural: Removed without complications and With tip intact
[2023-07-14] MEDS: IBUPROFEN 600 MG TAB PO PRN ×4 (01:29→19:24)
[2023-07-14] MEDS: ACETAMINOPHEN 325 MG TAB PO PRN ×3 (03:42→20:24)
[2023-07-14] MEDS: LEVOTHYROXINE SODIUM 25 MCG TABLET PO SCH (07:16)
[2023-07-14] MEDS: DOCUSATE SODIUM 100 MG CAP PO SCH ×2 (08:12→20:24)
[2023-07-14] MEDS: PRENATAL VITAMIN 1 TAB PO SCH (08:12)
--- NOTE | 2023-07-14 08:48 | Obstetrical Progress Note ---
Date of Service July 14, 2023 Assessment & Plan (1) Supervision of elderly primigravida: PPD#1. Overall doing well. Struggling to walk - feels like legs are still numb, pubic symphysis feels . Will ask PT to help with walking/movement today - suspect both still seeing effects from epidural and large baby. Continue routine care. Subjective Ambulation: ambulating normally Voiding: no voiding problems Diet Tolerance:: regular diet Lochia:: Moderate Review of Systems All systems reviewed & are unremarkable except as noted in HPI & below Physical Exam Constitutional WD/WN, vitals as above no acute distress Respiratory normal respiratory effort Cardiovascular Rate/Rhythm: regular rate and regular rhythm Gastrointestinal (Abdomen) Inspection/Auscultation: abdomen normal to inspection; abdomen not distended Percussion/Palpation: abdomen soft Genitourinary OB Exam Abdomen: + fundal height Fundus: + firm; not tender Results & Data Vital Signs (Past 12 Hours) Vital Signs Temp Pulse Pulse Pulse Resp BP BP 07/14/23 08:00 36.3 C L 69 18 93/59 L 07/14/23 04:15 37 C 85 16 109/66 07/14/23 01:00 37 C 88 16 108/64 07/13/23 23:33 93 H 108/57 L 07/13/23 23:26 90 105/58 L 07/13/23 23:25 36.9 C 18 07/13/23 23:11 94 H 116/59 L 07/13/23 22:56 93 H 105/58 L 07/13/23 22:55 36.7 C 18 07/13/23 22:41 96 H 119/63 07/13/23 22:26 91 H 114/65 07/13/23 22:25 36.7 C 18 07/13/23 22:11 86 125/68 07/13/23 22:10 36.7 C 18 07/13/23 21:56 87 117/63 07/13/23 21:55 36.7 C 18 07/13/23 21:41 91 H 139/67 07/13/23 21:40 36.7 C 18 07/13/23 21:35 95 H 143/68 H 07/13/23 21:29 92 H 07/13/23 21:25 37.3 C 18 07/13/23 21:24 92 H 07/13/23 21:21 95 H 145/69 H 07/13/23 21:19 89 07/13/23 21:14 93 H 07/13/23 21:09 88 07/13/23 21:06 93 H 126/64 07/13/23 21:04 96 H 07/13/23 20:59 95 H 07/13/23 20:54 107 H 07/13/23 20:49 113 H Pulse Ox O2 Del Method 07/14/23 08:00 98 Room Air 07/14/23 04:15 97 Room Air 07/14/23 01:00 96 Room Air 07/13/23 23:33 07/13/23 23:26 07/13/23 23:25 07/13/23 23:11 07/13/23 22:56 07/13/23 22:55 07/13/23 22:41 07/13/23 22:26 07/13/23 22:25 07/13/23 22:11 07/13/23 22:10 07/13/23 21:56 07/13/23 21:55 07/13/23 21:41 07/13/23 21:40 07/13/23 21:35 07/13/23 21:29 98 07/13/23 21:25 07/13/23 21:24 99 07/13/23 21:21 07/13/23 21:19 99 07/13/23 21:14 99 07/13/23 21:09 99 07/13/23 21:06 07/13/23 21:04 98 07/13/23 20:59 98 07/13/23 20:54 98 07/13/23 20:49 97
[2023-07-14 09:16] LABS: Hematocrit (blood only) 34.6 % (37.0-47.0); Hemoglobin 11.9 g/dl (12.0-16.0)
[2023-07-14] MEDS ORDERED: bisacodyL 5 MG TABEC PO SCH (20:00)
[2023-07-15] MEDS: IBUPROFEN 600 MG TAB PO PRN ×2 (03:16→09:06)
--- NOTE | 2023-07-15 06:03 | Obstetrical Progress Note ---
Date of Service July 15, 2023 Assessment & Plan (1) Encounter for care after hospital delivery: Plan -Vital signs reviewed and WNL -HGB 11.9 Blood type A+ Rubella immune Pt doing well clinically Encourage ambulation Monitor and control pain with Motrin prn Monitor lochia Encourage PT counselled on discharge instructions Admission and Anticipated Discharge Date Admission Date: July 12, 2023 Supervising Physician Co-Signing Physician Notes Resident Physician Supervision Note: I was present with Dr. Quincy Barajas during the history and exam. I discussed the case with the resident and agree with the findings and plan as documented in the note. Any exceptions or clarifications are listed here: PPD#2 doing well. Reviewed events of delivery - discussed nuchal x 3, decelerations in the last portion of pushing with HR returns to baseline between ctx, initial low score with improvement to 7 at 5 min and 8 at 10 min. Questions answered. Documented By: Sabrina Rivera, DO Subjective 38 yo post- day 2 s/p Ambulation: ambulating with a walker Voiding: no voiding problems Passing Gas:: Yes Diet Tolerance:: regular diet Lochia:: Small Feeding Type:: Breast Feeding Current Pain Level: Minimal Resting comfortably this AM in NAD. Denies DAVISON, CP, SOB, N/V/D, LE pain/swelling. Review of Systems Review of Systems: All systems reviewed & are unremarkable except as noted in HPI & below Physical Exam Physical Exam: General: patient resting comfortably, NAD, non-toxic in appearance, AA&O x 4, answers questions appropriately. Skin: warm, dry, intact HEENT: NC/AT, anicteric sclera, conjunctiva without injection, moist mucus membranes. Heart: +S1/S2, regular, no m/r/g Lungs: equal air entry bilaterally, no rales/rhonchi/wheezes Abd: +BS, soft, NT/ND, uterine fundus firm at umbilicus Ext: warm, no clubbing/cyanosis or edema, Anna's neg. Neuro: nonfocal, patient AA&O x 4, speech intact, no facial droop, moving all extremities on command. Results & Data Vital Signs (Past 12 Hours) Vital Signs Temp Pulse Resp BP Pulse Ox O2 Del Method 07/15/23 00:00 36.7 C 80 20 95/58 L 98 Room Air 07/14/23 19:15 36.5 C 79 16 95/88 L 98 Room Air Resident Activity Tracking Resident Involvement: Resident Care Provided Care Provided: OB Delivery
[2023-07-15] MEDS: LEVOTHYROXINE SODIUM 25 MCG TABLET PO SCH (06:40)
[2023-07-15] MEDS: DOCUSATE SODIUM 100 MG CAP PO SCH (09:06)
[2023-07-15] MEDS: PRENATAL VITAMIN 1 TAB PO SCH (09:06)
[2023-07-15] MEDS ORDERED: bisacodyL 10 MG SUPP PR PRN (21:45)
== END 2023-07-15 14:15 | disposition home or self-care (01) | DRG 807 ==
LOC: 4S1 23:20 → 4E2 07-14 00:21

== ENCOUNTER 2023-07-19 04:47 | Inpatient (IN) ==
--- NOTE | 2023-07-19 05:29 | Emergency Department Note ---
Impression & Plan UTI (urinary tract infection), Sepsis, Elevated troponin, Elevated procalcitonin, Syncope, Weakness ED Provider Note Provider: Félix Ortega MD DATE OF SERVICE: 07/19/2023 CHIEF COMPLAINT: Weakness, illness HISTORY OF PRESENT ILLNESS: Patient is a 38-year-old female history of hypothyroidism and 5 days of 39-week with vaginal delivery presenting here with with weakness and illness episodes. Over the last day or 2 has been experiencing episodes of weakness, tachycardia, shakiness, and fleeting (seconds) of chest discomfort. Just restarted levothyroxine. Episodes happened around 3 PM yesterday and 3 AM this morning. Have been in contact with OB. It may be related to sugar but they have tested blood sugar at home and he she has had some intake and symptoms did quickly resolved. Severity of the symptoms over the course of about an hour with tachycardia and cool extremities and some paleness to the face. No abdominal pain. Some trace vaginal bleeding but nothing significant by report. No significant swelling of the legs reported. No trauma reported. Syncopized tonight. Denies feeling significantly short of breath at this time. Reports she is getting a little bit of headache at the moment but that seems to happen as these brief episodes resolved. Often gets very fatigued after this. Has been breast-feeding. This reportedly has been going okay. No fevers reported. at home with grandparents and healthy by report. No visual changes. PAST MEDICAL HISTORY: As noted above MEDICATIONS: Reviewed medications just restarted levothyroxine SOCIAL HISTORY: PHYSICAL EXAM: GENERAL: alert and oriented in no acute distress on stretcher however fatigued appearance with at bedside Head: normocephalic and atraumatic EYES: No injection, discharge or icterus. NECK: Trachea midline. ENT: Mucous membranes pink and moist. LUNGS: Airway patent. No retractions. Breath sounds clear with good air entry bilaterally. HEART: Regular rate and rhythm. Some slight bilateral chest wall and breast tenderness without significant fluctuance noted or erythema. ABDOMEN: Soft still mildly gravid abdomen that is non-tender, without guarding or rebound. SKIN: Acyanotic, warm, dry, without rashes EXTREMITIES: Without significant swelling, tenderness or deformity NEUROLOGICAL: No focal deficits. No aphasia. No facial droop or slurred speech. Normal strength and tone in the extremities. Sensation to gross touch normal. Ambulatory to the bathroom EK bpm sinus tachycardia. No PVC. No acute ST segment elevation or depression with a QTc of 438. CONTINUOUS CARDIAC MONITORING: was ordered and showed a heart rate of 80s-110s bpm in normal sinus rhythm and sinus tachycardia 1 view chest x-ray per my interpretation: No evidence of pneumonia or pneumothorax. No evidence of pulmonary edema. Patient's laboratory studies and imaging reviewed. Differential includes Infection, dehydration, metabolic abnormality, hypo/hyperglycemia, electrolyte disturbance, anemia, hypoxia, cardiac sources, intracerebral event, toxicologic, neurologic, as well as other pathologies. IMPRESSION/MEDICAL DECISION MAKING: Initial blood pressure slightly low but once in room improved without intervention. Mildly tachycardic. Not hypoxic. No evidence of significant leg swelling and doubt DVT. No significant abdominal pain or vaginal bleeding and low suspicion this represents endometritis. Given some IV fluid and EKG and blood work was sent. X-ray without findings concerning for pneumonia or pulmonary edema at this point. The varying nature of her symptoms does not seem consistent with necessarily PE. I doubt ACS but troponin was sent to exclude any demand ischemia with her tachycardia. Did have a syncopal episode by report but no trauma. No obvious mastitis but some mild diffuse tenderness of the bilateral breast. No fevers reported. Procalcitonin and lactate as well as culture sent. Blood pressure, lack of swelling, and lack of visual changes do not seem indicative of preeclampsia at this time. Electrolytes with some mild hypokalemia and hypomagnesemia. No significant electrolyte abnormality or anion gap. No bilirubin elevation but AST of 42, ALT of 56, alkaline phosphatase 113 ALT just above normal. Normal platelet count. Slight leukocytosis 12.4. Mild anemia of 11.1 slightly down from 11.9. Troponin returns elevated at 117. Given this discussed with him and we will proceed with a CT of the chest to exclude PE. Could be demand from tachycardia. I doubt this represents acute ACS. Do not feel she needs anticoagulated. Do not see significant clinical evidence of cardiomyopathy at this time. Again abdomen is reassuring without significant pain or tenderness. No significant flank pain reported. Discussed with Dr. Rivera of obstetrics. Review of case does not seem consistent with preeclampsia or hellp syndrome. CT angiogram of the chest completed without findings of PE or lung consolidation. Procalcitonin does return elevated at 26. In the setting of her symptoms this is concerning for possible infection but I do not see an obvious source at this time and again doubt endometritis. Does have some tenderness across the breast but really focal for mastitis. Urinalysis positive although some epithelial cells are noted. Very well could be a UTI driving this. Does incidentally also test positive for rhinovirus. Discussed with patient and . Little bit of slight rash with the IV contrast given some Benadryl. Empirically covered with a dose of cefepime in discussion with pharmacy. Breast pump equipment brought to the bedside. Does additionally test positive for entero-/rhinovirus. Updated patient and and discussed with the hospice team further care here. DIAGNOSIS: Acute UTI, sepsis, elevated troponin, hypomagnesemia, hypokalemia, entero- /rhinovirus, syncope DISPOSITION: Hospitalist will evaluate Patient was agreeable with this plan. Critical Care I have personally spent 36 minutes of critical care time in the direct management of this patient. This includes bedside care, interpretation of diagnostic studies, and testing, discussion with consultants, patient, and family members, and other required patient management activities. These 36 minutes is in excess of all separately billable procedures. Past Med/Surg History Medical History Fibroid, uterine Right lateral fibroid 7cm Gestational diabetes On insulin Hypothyroid on medications History of chicken pox Hemoperitoneum Surgical History S/P myomectomy laparoscopic, did not disrupt myometrium per 05/2022 note Status post hysteroscopic polypectomy H/O wisdom tooth extraction Family History Mother Depression Hypertension Dyslipidemia Father Dementia Diabetes Gout Kidney disease Brother No problems noted. Brother No problems noted. Brother No problems noted. Sister No problems noted. Denies family history of Ovarian cancer Prostate cancer Myocardial infarction Breast cancer Colorectal cancer Social History (Updated 07/12/23 @ 23:44 by Barbara Dewitt RN) Smoking Status: Never smoker Second Hand Exposure: No; Do You Dip or Chew Tobacco: No; Hx Alcohol Use: No Hx Substance Use: No Preferred Language: Montserratian Communication Ability: Effective Visual Impairment: No Limitations Hearing Ability: Normal Boat Patcher Plastic Required: No Beliefs That Will Affect Care: None marital status: marital status details: Asa Zimmerman (35) [phone] Current Living Situation: Spouse Current Living Situation Comment: Lives with Asa current occupational status: employed current occupation: [employer] How many Children do You have: 0 Feels Safe at Home: Yes Childhood Exposure to Second-Hand Smoke: Yes Diet: regular caffeine: No during the past year weight has: increased > 10 lbs Dental Care, Regularly: Yes Physical Activity Frequency: 1-2 Times per Week Seatbelt Use: always Sunscreen Use: Yes Assistive Devices: None Allergies Allergies Allergy/AdvReac Type Severity Reaction Status Date / Time Latex, Natural Rubber Allergy Mild Rash Verified 07/12/23 23:44 Sulfa (Sulfonamide AdvReac Mild flu like Verified 07/12/23 23:44 Antibiotics) symptoms Home Meds Home Medications Medication Instructions Recorded Confirmed [id number] 1 mg 1 tab PO BID 05/14/22 07/12/23 tablet Previous Rx's Medication Instructions Recorded levothyroxine 25 mcg tablet 25 mcg PO QAM #90 tabs 04/24/23 walker #1 ea 07/15/23 Results & Data (ED) Vital Signs Vital Signs - 24 hr 07/19/23 04:56 07/19/23 05:09 07/19/23 05:23 Temperature 36.9 C Temperature Source Temporal Artery Scan Pulse Rate 119 H 109 H Pulse Rate [Apical] 107 H Pulse Rhythm Regular Pulse Strength Normal Respiratory Rate 18 18 Respiratory Effort / Characteristics Non-Labored Spontaneous Non-Labored Spontaneous Respiratory Depth Normal Normal Respiratory Pattern Regular Regular Blood Pressure 93/51 L Blood Pressure [Right Arm] 109/60 Blood Pressure Mean 65 Blood Pressure Mean [Right Arm] 76 Blood Pressure Position Sitting Blood Pressure Position [Right Arm] Semi-fowlers Pulse Oximetry 98 96 Oxygen Delivery Method Room Air Room Air Sepsis Recent Fever Within 48 Hours No Sepsis New/Unexplained Change in Mental Status N/A Sepsis Action Taken by Nursing No Action Required 07/19/23 05:50 07/19/23 06:38 07/19/23 08:40 Temperature Temperature Source Pulse Rate Pulse Rate [Apical] 97 H 88 Pulse Rhythm Pulse Strength Respiratory Rate 18 15 Respiratory Effort / Characteristics Non-Labored Spontaneous Non-Labored Respiratory Depth Normal Normal Respiratory Pattern Regular Blood Pressure Blood Pressure [Right Arm] 112/62 108/67 Blood Pressure Mean Blood Pressure Mean [Right Arm] 78 80 Blood Pressure Position Blood Pressure Position [Right Arm] Semi-fowlers Pulse Oximetry 96 97 97 Oxygen Delivery Method Room Air Room Air Room Air Sepsis Recent Fever Within 48 Hours Sepsis New/Unexplained Change in Mental Status Sepsis Action Taken by Nursing Laboratory Data 07/19/23 05:19 07/19/23 05:19 Lab Results 07/19/23 07/19/23 07/19/23 Range/Units 05:19 06:08 06:39 WBC 12.41 H (4.8-10.8) K/ul RBC 3.47 L (4.20-5.40) M/uL Hgb 11.1 L (12.0-16.0) g/dl Hct 32.4 L (37.0-47.0) % MCV 93.4 (80.0-100.0) fL MCH 32.0 (25.0-34.0) pg MCHC 34.3 (32.0-36.0) g/dL RDW Std Deviation 51.6 H (36.4-46.3) fL RDW Coeff of Jordan 15.0 H (11.5-14.5) % Plt Count 144 (130-400) K/uL MPV 10.6 (9.4-12.4) fL Immature Gran % (Auto) 2.0 % Neut % (Auto) 87.3 % Lymph % (Auto) 5.2 % Emery % (Auto) 5.2 % Eos % (Auto) 0.1 % Baso % (Auto) 0.2 % Neut # (Auto) 10.83 H (1.40-6.50) K/uL Lymph # (Auto) 0.65 L (1.20-3.40) K/uL Emery # (Auto) 0.64 H (0.11-0.59) K/uL Eos # (Auto) 0.01 (0.00-0.50) K/uL Baso # (Auto) 0.03 (0.00-0.20) K/uL Immature Gran # (Auto) 0.25 H (0.01-0.20) K/uL Absolute Nucleated RBC 0.02 (0.00-0.12) K/uL Nucleated RBC % (auto) 0.2 % Dohle Bodies 1+ Polychromasia 1+ PT 10.7 (9.0-12.0) Seconds INR 1.0 (0.9-1.1) Sodium 137 (136-145) mmol/L Potassium 3.2 L (3.5-5.1) mmol/L Chloride 106 (98-107) mmol/L Carbon Dioxide 21 (21-32) mmol/L Anion Gap 10 (3-11) BUN 18 (6-23) mg/dl Creatinine 0.61 (0.6-1.2) mg/dl Est Cr Clr Drug Dosing 120.0 ml/min Est GFR ( Amer) 134.2 ml/min Est GFR (Non-Af Amer) 115.8 ml/min BUN/Creatinine Ratio 29.5 H (10-20) Glucose 158 H (70-99(Fasting)) mg/dl Lactate 1.2 (0.4-2.0) mmol/L Calcium 8.2 L (8.6-10.3) mg/dl Magnesium 1.6 L (1.7-2.4) mg/dl Total Bilirubin 0.5 (0.2-1.0) mg/dl AST 42 H (13-39) U/L ALT 56 H (7-52) U/L Alkaline Phosphatase 113 H (34-104) U/L Troponin I High Sens 117.3 H* (0-14) pg/ml Total Protein 5.8 L (6.0-8.3) gm/dl Albumin 3.2 L (3.4-5.0) gm/dl Globulin 2.6 (2.5-4.0) gm/dl Albumin/Globulin Ratio 1.2 (0.9-2) Procalcitonin 26.66 H (0-0.5) ng/ml TSH 1.312 (0.300-4.500) uIu/ml Urine Color Yellow Urine Appearance Cloudy A (Clear) Urine pH 7.0 (4.5-7.5) Ur Specific [place] 1.011 (1.000-1.030) Urine Protein 2+ H (Negative) Urine Glucose (UA) Negative (Negative) Urine Ketones Negative (Negative) Urine Blood 3+ H (Negative) Urine Nitrite Positive A (Negative) Urine Bilirubin Negative (Negative) Urine Urobilinogen Negative (Negative) Ur Leukocyte Esterase 3+ H (Negative) Urine WBC (Auto) >30 H (0-5) /hpf Urine RBC (Auto) >30 H (0-4) /hpf U Hyaline Cast (Auto) 1-5 (0-5) /lpf U Epithel Cells (Auto) >30 H (0-5) /lpf Urine Bacteria (Auto) 4+ H (Negative) Adenovirus (PCR) Not Detected (NotDetected) B. pertussis DNA (PCR) Not Detected (NotDetected) B.parapertussis DNA PCR Not Detected (NotDetected) C. pneumoniae DNA (PCR) Not Detected (NotDetected) Coronavirus OC43 (PCR) Not Detected (NotDetected) Coronavirus HKU1 (PCR) Not Detected (NotDetected) Coronavirus 229E (PCR) Not Detected (NotDetected) SARS-CoV-2 (PCR) Not Detected (NotDetected) Coronavirus NL63 (PCR) Not Detected (NotDetected) Human Metapneumovir PCR Not Detected (NotDetected) Influenza Type A (PCR) Not Detected (NotDetected) Influenza Type B (PCR) Not Detected (NotDetected) M. pneumoniae (PCR) Not Detected (NotDetected) Parainfluenza 1 (PCR) Not Detected (NotDetected) Parainfluenza 2 (PCR) Not Detected (NotDetected) Parainfluenza 3 (PCR) Not Detected (NotDetected) Parainfluenza 4 (PCR) Not Detected (NotDetected) RSV (PCR) Not Detected (NotDetected) Entero/Rhino (PCR) DETECTED A* (NotDetected) 07/19/23 Range/Units 07:27 WBC (4.8-10.8) K/ul RBC (4.20-5.40) M/uL Hgb (12.0-16.0) g/dl Hct (37.0-47.0) % MCV (80.0-100.0) fL MCH (25.0-34.0) pg MCHC (32.0-36.0) g/dL RDW Std Deviation (36.4-46.3) fL RDW Coeff of Jordan (11.5-14.5) % Plt Count (130-400) K/uL MPV (9.4-12.4) fL Immature Gran % (Auto) % Neut % (Auto) % Lymph % (Auto) % Emery % (Auto) % Eos % (Auto) % Baso % (Auto) % Neut # (Auto) (1.40-6.50) K/uL Lymph # (Auto) (1.20-3.40) K/uL Emery # (Auto) (0.11-0.59) K/uL Eos # (Auto) (0.00-0.50) K/uL Baso # (Auto) (0.00-0.20) K/uL Immature Gran # (Auto) (0.01-0.20) K/uL Absolute Nucleated RBC (0.00-0.12) K/uL Nucleated RBC % (auto) % Dohle Bodies Polychromasia PT (9.0-12.0) Seconds INR (0.9-1.1) Sodium (136-145) mmol/L Potassium (3.5-5.1) mmol/L Chloride (98-107) mmol/L Carbon Dioxide (21-32) mmol/L Anion Gap (3-11) BUN (6-23) mg/dl Creatinine (0.6-1.2) mg/dl Est Cr Clr Drug Dosing ml/min Est GFR ( Amer) ml/min Est GFR (Non-Af Amer) ml/min BUN/Creatinine Ratio (10-20) Glucose (70-99(Fasting)) mg/dl Lactate (0.4-2.0) mmol/L Calcium (8.6-10.3) mg/dl Magnesium (1.7-2.4) mg/dl Total Bilirubin (0.2-1.0) mg/dl AST (13-39) U/L ALT (7-52) U/L Alkaline Phosphatase (34-104) U/L Troponin I High Sens 131.0 H* (0-14) pg/ml Total Protein (6.0-8.3) gm/dl Albumin (3.4-5.0) gm/dl Globulin (2.5-4.0) gm/dl Albumin/Globulin Ratio (0.9-2) Procalcitonin (0-0.5) ng/ml TSH (0.300-4.500) uIu/ml Urine Color Urine Appearance (Clear) Urine pH (4.5-7.5) Ur Specific [place] (1.000-1.030) Urine Protein (Negative) Urine Glucose (UA) (Negative) Urine Ketones (Negative) Urine Blood (Negative) Urine Nitrite (Negative) Urine Bilirubin (Negative) Urine Urobilinogen (Negative) Ur Leukocyte Esterase (Negative) Urine WBC (Auto) (0-5) /hpf Urine RBC (Auto) (0-4) /hpf U Hyaline Cast (Auto) (0-5) /lpf U Epithel Cells (Auto) (0-5) /lpf Urine Bacteria (Auto) (Negative) Adenovirus (PCR) (NotDetected) B. pertussis DNA (PCR) (NotDetected) B.parapertussis DNA PCR (NotDetected) C. pneumoniae DNA (PCR) (NotDetected) Coronavirus OC43 (PCR) (NotDetected) Coronavirus HKU1 (PCR) (NotDetected) Coronavirus 229E (PCR) (NotDetected) SARS-CoV-2 (PCR) (NotDetected) Coronavirus NL63 (PCR) (NotDetected) Human Metapneumovir PCR (NotDetected) Influenza Type A (PCR) (NotDetected) Influenza Type B (PCR) (NotDetected) M. pneumoniae (PCR) (NotDetected) Parainfluenza 1 (PCR) (NotDetected) Parainfluenza 2 (PCR) (NotDetected) Parainfluenza 3 (PCR) (NotDetected) Parainfluenza 4 (PCR) (NotDetected) RSV (PCR) (NotDetected) Entero/Rhino (PCR) (NotDetected) Administered Medications Discontinued Medications Diphenhydramine HCl (Diphenhydramine 50 Mg/Ml Vial) 25 mg IV NOW STA Stop: 07/19/23 07:16 Last Admin: 07/19/23 08:23 Dose: 25 mg Documented By: VIRA Sodium Chloride (Nss) 1,000 mls @ 999 mls/hr IV .Q1H1M BRITTANY Stop: 07/19/23 06:30 Last Infusion: 07/19/23 08:45 Dose: Infused Documented By: Admin: 07/19/23 05:49 Dose: 999 mls/hr Documented By: ANDRE Potassium Chloride (K Crispin / Wtr) 10 meq in 100 mls @ 100 mls/hr IV ONE ONE Stop: 07/19/23 07:06 Last Infusion: 07/19/23 08:01 Dose: Infused Documented By: Admin: 07/19/23 06:24 Dose: 100 mls/hr Documented By: ANDRE Magnesium Sulfate/Dextrose (Magnesium Sulfate / D5w) 1 gm in 100 mls @ 100 mls/hr IV NOW STA Stop: 07/19/23 07:06 Last Infusion: 07/19/23 08:01 Dose: Infused Documented By: Admin: 07/19/23 06:55 Dose: 100 mls/hr Documented By: ANDRE Sodium Chloride (Nss) 1,000 mls @ 999 mls/hr IV .Q1H1M ONE Stop: 07/19/23 08:15 Last Admin: 07/19/23 08:24 Dose: 999 mls/hr Documented By: VIRA Cefepime HCl (Maxipime) 2,000 mg in 20 mls @ 5 mls/min IV NOW STA; Protocol Stop: 07/19/23 07:22 Last Admin: 07/19/23 08:24 Dose: 5 mls/min Documented By: VIRA Ioversol (Optiray 320 125ml) 75 ml IV ONCE ONE Stop: 07/19/23 06:53 Last Admin: 07/19/23 06:52 Dose: 75 ml Documented By: ANA Imaging Data Radiologist's Impression: Chest X-Ray 07/19/23 05:16 SINGLE VIEW CHEST CLINICAL HISTORY: Generalized weakness. Tachycardia. FINDINGS: An AP, portable, upright chest radiograph is obtained. No prior studies are available for comparison at the time of dictation. The cardiomediastinal silhouette is unremarkable. Nipple shadows project over the lung bases. The lungs and pleural spaces are clear. No pneumothorax is seen. The bony thorax is grossly intact. IMPRESSION: No active disease in the chest. ACT 112: Negative or not required by law. Electronically signed by: Irwin Velásquez M.D. 07/19/2023 8:13 AM Chest CTA 07/19/23 06:23 CT angio chest PE protocol CT DOSE: 288.07 mGy.cm HISTORY: 38 years-old Female with PE, tachy, elev troponin, post . Acute shortness of breath TECHNIQUE: Multiple CTA images of the chest were obtained after the intravenous administration of 75 ml Optiray. Coronal and sagittal MIPS were obtained from the axial data set and were submitted for review. All measurements were obtained according to NASCET criteria. A dose lowering technique was utilized adhering to the principles of ALARA. COMPARISON: Chest radiograph of same day. FINDINGS: CTA: There is adequate opacification of the pulmonary arteries to the level of the subsegmental branches without convincing evidence of acute pulmonary embolism. Normal thoracic aorta.Heart size is normal. CT CHEST: No dominant thyroid nodule is seen. No pathologically adenopathy by CT size criteria. There is no pneumothorax, pleural effusion or focal airspace consolidation. The imaged upper abdominal structures are normal. The osseous structures appear intact. IMPRESSION: Unremarkable CTA of the chest. No pulmonary emboli identified. ACT 112: Negative or not required by law. The above report was generated using voice recognition software. It may contain grammatical, syntax or spelling errors. Electronically signed by: Humberto Russell M.D. 07/19/2023 7:50 AM Discharge Plan Visit Data Chief Complaint: Illness Stated Complaint: CHILLS, ED Provider: Félix Ortega Discharge Problem: UTI (urinary tract infection), Sepsis, Elevated troponin, Elevated procalcitonin, Syncope, Weakness Patient Disposition: Admitted As Inpatient Forms Stand Alone Forms: Pending Sale To [facility] Prescriptions Prescriptions: No Action levothyroxine 25 mcg tablet 25 mcg PO QAM Qty: 90 0RF dkjocbhm-[id number]-[id number]-FA 1 mg Tablet 1 tab PO BID Rx Instructions: patient unsure of milligrams (DME[facility] Instructions .Route Qty: 1 0RF Rx Instructions: As directed Referrals Referrals: Faviola Duke MD [Primary Care Provider] -
[2023-07-19] MEDS ORDERED: SODIUM CHLORIDE 0.9% 1,000 ML IV SCH (05:30)
[2023-07-19 06:04] LABS: Albumin Globulin Ratio 1.2 (0.9-2); Albumin Level 3.2 gm/dl (3.4-5.0); BUN Creatinine Ratio 29.5 (10-20); Bilirubin,Total 0.5 mg/dl (0.2-1.0); Calcium 8.2 mg/dl (8.6-10.3); Est GFR (African American) 134.2 ml/min; Est GFR (Non-African American) 115.8 ml/min; Globulin 2.6 gm/dl (2.5-4.0); Magnesium 1.6 mg/dl (1.7-2.4); Potassium 3.2 mmol/L (3.5-5.1); Total Protein 5.8 gm/dl (6.0-8.3)
[2023-07-19] MEDS ORDERED: MAGNESIUM SULFATE / D5W 1 GM/100 ML BAG IV STA (06:07)
[2023-07-19] MEDS ORDERED: POTASSIUM CHLORIDE / WTR 10 MEQ/100 ML PLCT IV ONE (06:07)
[2023-07-19 06:17] LABS: Hematocrit (blood only) 32.4 % (37.0-47.0); Hemoglobin 11.1 g/dl (12.0-16.0); Mean Corpuscular Hgb Conc 34.3 g/dL (32.0-36.0); Mean Corpuscular Volume 93.4 fL (80.0-100.0); Mean Platelet Volume 10.6 fL (9.4-12.4); Nucleated RBC # (auto) 0.02 K/uL (0.00-0.12); Nucleated RBC % (auto) 0.2 %; Platelet Count 144 K/uL (130-400); RDW Standard Deviation 51.6 fL (36.4-46.3); Red Blood Count 3.47 M/uL (4.20-5.40); White Blood Count 12.41 K/ul (4.8-10.8)
[2023-07-19 06:19] LABS: Thyroid Stimulating Hormone 1.312 uIu/ml (0.300-4.500)
[2023-07-19 06:22] LABS: Prothrombin Time 10.7 Seconds (9.0-12.0); Troponin I High Sensitivity 117.3 pg/ml (0-14)
[2023-07-19] MEDS ORDERED: OPTIRAY 320 125ml IV ONE (06:52)
[2023-07-19 06:54] LABS: Basophils # (auto) 0.03 K/uL (0.00-0.20); Basophils % (auto) 0.2 %; Dohle Bodies 1+; Eosinophils # (auto) 0.01 K/uL (0.00-0.50); Eosinophils % (auto) 0.1 %; Immature Granulocytes # (auto) 0.25 K/uL (0.01-0.20); Lymphocytes # (auto) 0.65 K/uL (1.20-3.40); Lymphocytes % (auto) 5.2 %; Monocytes # (auto) 0.64 K/uL (0.11-0.59); Monocytes % (auto) 5.2 %; Neutrophils # (auto) 10.83 K/uL (1.40-6.50); Neutrophils % (auto) 87.3 %; Polychromasia 1+
[2023-07-19 06:57] LABS: Adenovirus PCR Not Detected (NotDetected); Bordetella parapertussis PCR Not Detected (NotDetected); Bordetella pertussis PCR Not Detected (NotDetected); Chlamydia pneumoniae PCR Not Detected (NotDetected); Coronavirus 229E PCR Not Detected (NotDetected); Coronavirus CoV-2 (COVID19)PCR Not Detected (NotDetected); Coronavirus HKU1 PCR Not Detected (NotDetected); Coronavirus NL63 PCR Not Detected (NotDetected); Coronavirus OC43PCR Not Detected (NotDetected); Human Metapneumovirus PCR Not Detected (NotDetected); Influenza A PCR Not Detected (NotDetected); Influenza B PCR Not Detected (NotDetected); Mycoplasma pneumoniae PCR Not Detected (NotDetected); Parainfluenza Virus 1 PCR Not Detected (NotDetected); Parainfluenza Virus 2 PCR Not Detected (NotDetected); Parainfluenza Virus 3 PCR Not Detected (NotDetected); Parainfluenza Virus 4 PCR Not Detected (NotDetected); Respiratory Syncytial VirusPCR Not Detected (NotDetected)
[2023-07-19 06:59] LABS: Appearance Urine Cloudy (Clear); Bacteria Urine Automated 4+ (Negative); Bilirubin Urine Negative (Negative); Blood Urine 3+ (Negative); Color Urine Yellow; Epithelial Cell Urine Auto >30 /lpf (0-5); Glucose Urine UA Negative (Negative); Ketones Urine Negative (Negative); Leukocyte Esterase Urine 3+ (Negative); Nitrite Urine Positive (Negative); Protein Urine 2+ (Negative); RBC Urine Automated >30 /hpf (0-4); Specific Gravity Urine 1.011 (1.000-1.030); Urobilinogen Urine Negative (Negative); WBC Urine Automated >30 /hpf (0-5)
[2023-07-19 07:14] LABS: Rhinovirus/Enterovirus PCR DETECTED (NotDetected)
[2023-07-19] MEDS ORDERED: SODIUM CHLORIDE 0.9% 1,000 ML IV ONE (07:15)
[2023-07-19] MEDS ORDERED: diphenhydrAMINE 50 MG/ML VIAL IV STA (07:15)
[2023-07-19] MEDS ORDERED: CEFEPIME 2,000 MG/20 ML VIAL IV STA (07:19)
--- NOTE | 2023-07-19 07:52 | CT Scan Report ---
CT angio chest PE protocol CT DOSE: 288.07 mGy.cm HISTORY: 38 years-old Female with PE, tachy, elev troponin, post . Acute shortness of breath TECHNIQUE: Multiple CTA images of the chest were obtained after the intravenous administration of 75 ml Optiray. Coronal and sagittal MIPS were obtained from the axial data set and were submitted for r eview. All measurements were obtained according to NASCET criteria. A dose lowering technique was ut ilized adhering to the principles of ALARA. COMPARISON: Chest radiograph of same day. FINDINGS: CTA: There is adequate opacification of the pulmonary arteries to the level of the subsegmental branches w ithout convincing evidence of acute pulmonary embolism. Normal thoracic aorta.Heart size is normal. CT CHEST: No dominant thyroid nodule is seen. No pathologically adenopathy by CT size criteria. There is no pn eumothorax, pleural effusion or focal airspace consolidation. The imaged upper abdominal structures are normal. The osseous structures appear intact. IMPRESSION: Unremarkable CTA of the chest. No pulmonary emboli identified. ACT 112: Negative or not required by law. The above report was generated using voice recognition software. It may contain grammatical, syntax o r spelling errors. Electronically signed by: Humberto Russell M.D. 07/19/2023 7:50 AM
--- NOTE | 2023-07-19 08:15 | XRay Report ---
SINGLE VIEW CHEST CLINICAL HISTORY: Generalized weakness. Tachycardia. FINDINGS: An AP, portable, upright chest radiograph is obtained. No prior studies are available for c omparison at the time of dictation. The cardiomediastinal silhouette is unremarkable. Nipple shadows project over the lung bases. The lungs and pleural spaces are clear. No pneumothorax is seen. The bon y thorax is grossly intact. IMPRESSION: No active disease in the chest. ACT 112: Negative or not required by law. Electronically signed by: Irwin Velásquez M.D. 07/19/2023 8:13 AM
--- NOTE | 2023-07-19 08:28 | History & Physical Report ---
Date of Service July 19, 2023 Assessment & Plan (1) Sepsis: Plan: Present on admission. This appears to be due to urinary tract infection. She responded to intravenous fluids and is now on intravenous cefepime, day 1. Blood and urine cultures have been obtained and are pending (2) UTI (urinary tract infection): Plan: Continue cefepime, day 1. Urine cultures pending (3) Normal vaginal delivery: Plan: 5 days . She is breast-feeding. OB consultation requested (4) Hypothyroidism: Plan: Stable. Continue Synthroid replacement Plan Anticipate discharge to home within the next day or 2 History of Present Illness Chief Complaint: weakness, rigors Primary Care Provider: Faviola Duke MD 38-year-old female who is 5 days vaginal delivery developed weakness and rigors with chills over the past few days. She presents to the ED last night with evidence of sepsis and UTI. She responded to IV fluids and has not needed pressor support. Urine analysis is consistent with UTI. Potassium and magnesium are mildly low and being replaced. Troponin is elevated but probably represents supply/demand mismatch. No chest pain and no acute EKG changes. Would not expect ischemic heart disease in this age group. Blood and urine cultures have been obtained. She has been started on cefepime. She is on IV fluids. She will be admitted for further evaluation and treatment and obstetrics will be consulted. Allergies Allergy/AdvReac Type Severity Reaction Status Date / Time Latex, Natural Rubber Allergy Mild Rash Verified 07/12/23 23:44 Sulfa (Sulfonamide AdvReac Mild flu like Verified 07/12/23 23:44 Antibiotics) symptoms Home Medications Medication Instructions Recorded Confirmed Type vodkglnn-xgy-Uz-FA 1 mg 1 tab PO BID 05/14/22 07/12/23 History tablet levothyroxine 25 mcg tablet 25 mcg PO QAM #90 tabs 04/24/23 07/12/23 Rx walker #1 ea 07/15/23 Rx Past Med/Surg History Medical History Fibroid, uterine Right lateral fibroid 7cm Gestational diabetes On insulin Hypothyroid on medications History of chicken pox Hemoperitoneum Surgical History S/P myomectomy laparoscopic, did not disrupt myometrium per 05/2022 note Status post hysteroscopic polypectomy H/O wisdom tooth extraction Family History Mother Depression Hypertension Dyslipidemia Father Dementia Diabetes Gout Kidney disease Brother No problems noted. Brother No problems noted. Brother No problems noted. Sister No problems noted. Denies family history of Ovarian cancer Prostate cancer Myocardial infarction Breast cancer Colorectal cancer Social History (Updated 07/12/23 @ 23:44 by Barbara Dewitt RN) Smoking Status: Never smoker Second Hand Exposure: No; Do You Dip or Chew Tobacco: No; Hx Alcohol Use: No Hx Substance Use: No Preferred Language: Peruvian Communication Ability: Effective Visual Impairment: No Limitations Hearing Ability: Normal Sleeve Presser Operator Required: No Beliefs That Will Affect Care: None marital status: marital status details: Asa Zimmerman (35) [phone] Current Living Situation: Spouse Current Living Situation Comment: Lives with Asa current occupational status: employed current occupation: [employer] for [employer] How many Children do You have: 0 Feels Safe at Home: Yes Childhood Exposure to Second-Hand Smoke: Yes Diet: regular caffeine: No during the past year weight has: increased > 10 lbs Dental Care, Regularly: Yes Physical Activity Frequency: 1-2 Times per Week Seatbelt Use: always Sunscreen Use: Yes Assistive Devices: None Review of Systems 2 Review of Systems: Constitutional-chills. Low-grade fever. HEENT-no blurred vision, no double vision, no epistaxis, no sore throat Respiratory-no cough, no wheezing, no shortness of breath Cardiac-no palpitations, no chest pain, no syncope GI-no nausea, vomiting, diarrhea, melena, hematochezia -no urinary retention, no urinary incontinence, no dysuria, no hematuria Musculoskeletal-no joint pain, no muscle tenderness Skin-no bruising, no rashes, no pruritus Neuro-generalized weakness. Psych-no depression, no anxiety Physical Exam 2 Physical Exam: General-alert and oriented x3, no fevers, no chills HEENT-head atraumatic and normocephalic, pupils equal and reactive to light, extraocular muscles intact Neck-no lymphadenopathy or thyromegaly, trachea midline Chest-clear to auscultation percussion. No rales wheezing or rhonchi Cardiac-regular rate and rhythm, normal S1 and S2, no murmurs Abdomen-normal bowel sounds, no hepatosplenomegaly. Nontender. Distended from recent Extremities-no cyanosis, clubbing, or edema Neuro-cranial nerves II through XII intact, motor and sensory function within normal limits, strength symmetrical, no focal deficits Psych-normal affect, normal mood Results & Data Results & Data Vital Signs (Past 12 Hours) Vital Signs Temp Pulse Pulse Resp BP BP Pulse Ox 07/19/23 06:38 97 H 18 112/62 97 07/19/23 05:50 96 07/19/23 05:23 107 H 18 109/60 96 07/19/23 05:09 109 H 07/19/23 04:56 36.9 C 119 H 18 93/51 L 98 O2 Del Method 07/19/23 06:38 Room Air 07/19/23 05:50 Room Air 07/19/23 05:23 Room Air 07/19/23 05:09 07/19/23 04:56 Room Air Laboratory Results 07/19/23 05:19 07/19/23 05:19 Code Status & VTE Plan Code Status Full code PG Care Time/CCT Total # of Minutes Spent Total Time Spent with Patient: Total time spent is greater than 50% in coordination of care (as documented) at patient's floor/unit and/or counseling patient: Coding Level of Care Code 99803 INT INP/OBS CARE 3/75MIN Diagnoses Sepsis A41.9 UTI (urinary tract infection) N39.0 Normal vaginal delivery O80 Hypothyroidism E03.9
[2023-07-19] MEDS ORDERED: ONDANSETRON INJ 2 MG/ML 2 ML VIAL IV PRN (10:22)
[2023-07-19 11:26] LABS: Hematocrit (blood only) 34.1 % (37.0-47.0); Hemoglobin 11.3 g/dl (12.0-16.0); Mean Corpuscular Hemoglobin 31.7 pg (25.0-34.0); Mean Corpuscular Hgb Conc 33.1 g/dL (32.0-36.0); Mean Corpuscular Volume 95.5 fL (80.0-100.0); Mean Platelet Volume 10.4 fL (9.4-12.4); Platelet Count 133 K/uL (130-400); Red Blood Count 3.57 M/uL (4.20-5.40); White Blood Count 15.62 K/ul (4.8-10.8)
[2023-07-19 11:38] LABS: BUN Creatinine Ratio 23.3 (10-20); Calcium 7.9 mg/dl (8.6-10.3); Est GFR (Non-African American) 116.4 ml/min; Potassium 3.6 mmol/L (3.5-5.1)
[2023-07-19] MEDS: SODIUM CHLORIDE 0.9% 1,000 ML IV SCH (11:44)
[2023-07-19 11:46] LABS: Troponin I High Sensitivity 73.4 pg/ml (0-14)
[2023-07-19 11:56] LABS: Basophils # (auto) 0.05 K/uL (0.00-0.20); Basophils % (auto) 0.3 %; Eosinophils # (auto) 0.01 K/uL (0.00-0.50); Eosinophils % (auto) 0.1 %; Immature Granulocytes # (auto) 0.24 K/uL (0.01-0.20); Immature Granulocytes % (auto) 1.5 %; Lymphocytes # (auto) 1.39 K/uL (1.20-3.40); Lymphocytes % (auto) 8.9 %; Monocytes # (auto) 0.87 K/uL (0.11-0.59); Monocytes % (auto) 5.6 %; Neutrophils # (auto) 13.06 K/uL (1.40-6.50); Neutrophils % (auto) 83.6 %
--- NOTE | 2023-07-19 12:03 | History & Physical Report ---
Date of Service July 19, 2023 Assessment & Plan (1) Sepsis: (2) Encounter for care after hospital delivery: Plan: Do not see this is a necessarily an obstetrical related infection but we will follow along as the patient is recently delivered and also is breast-feeding she is breast-feeding and pumping. She is also tested positive for RSV we will follow along however do not have anything clinically to add at this time as she has no signs of mastitis heavy bleeding or endometritis Admission and Anticipated Discharge Date Admission Date: July 19, 2023 History of Present Illness Primary Care Provider: Faviola Duke MD Patient will be delivered vaginally on July 13 was complicated by DAYDAY Calculator Estimated Delivery Date Method Current WG Current Estimate 07/13/23 Ultrasound #1 38w 5d Other Estimates 07/09/23 LMP (Certain) 39w 2d LMP: 10/02/22 : 2 Full term: 0 Premature: 0 Total Number of Induced Abortions: 0 Total Number of Spontaneous Abortions: 1 Ectopics: 0 Multiple births: 0 Number of Living Children: 0 and Delivery Plans AMA Weekly NST's @ 36 weeks Hypothyroid *Check TFTs Q4wks Hx laparoscopic myomectomy, pedunculated and did not enter cavity -05/2022 note says ok for regular and delivery - R lateral fibroid enlarged to 7cm at 20wk, so check growth @ 32wk GDM on insulin *Wkly NSTs @32wks and Twice wkly @36wks *Serial growth US @28wks *Deliver by [facility] Jul 12 IOL Allergies Allergy/AdvReac Type Severity Reaction Status Date / Time Latex, Natural Rubber Allergy Mild Rash Verified 07/12/23 23:44 Sulfa (Sulfonamide AdvReac Mild flu like Verified 07/12/23 23:44 Antibiotics) symptoms Home Medications Medication Instructions Recorded Confirmed Type vmybxjsh-qhv-Mn-FA 1 mg 1 tab PO BID 05/14/22 07/19/23 History tablet levothyroxine 25 mcg tablet 25 mcg PO QAM #90 tabs 04/24/23 07/19/23 Rx walker #1 ea 07/15/23 Rx Patient History Medical History Fibroid, uterine Right lateral fibroid 7cm Gestational diabetes On insulin Hypothyroid on medications History of chicken pox Hemoperitoneum Surgical History S/P myomectomy laparoscopic, did not disrupt myometrium per 05/2022 note Status post hysteroscopic polypectomy H/O wisdom tooth extraction Family History Mother Depression Hypertension Dyslipidemia Father Dementia Diabetes Gout Kidney disease Brother No problems noted. Brother No problems noted. Brother No problems noted. Sister No problems noted. Denies family history of Ovarian cancer Prostate cancer Myocardial infarction Breast cancer Colorectal cancer Social History (Updated 07/12/23 @ 23:44 by Barbara Dewitt RN) Smoking Status: Never smoker Second Hand Exposure: No; Do You Dip or Chew Tobacco: No; Hx Alcohol Use: No Hx Substance Use: No Preferred Language: Emirati Communication Ability: Effective Visual Impairment: No Limitations Hearing Ability: Normal Over The Road Driver Required: No Beliefs That Will Affect Care: None marital status: marital status details: Asa Zimmerman (35) [phone] Current Living Situation: Spouse Current Living Situation Comment: Lives with Asa current occupational status: employed current occupation: [employer] How many Children do You have: 0 Feels Safe at Home: Yes Childhood Exposure to Second-Hand Smoke: Yes Diet: regular caffeine: No during the past year weight has: increased > 10 lbs Dental Care, Regularly: Yes Physical Activity Frequency: 1-2 Times per Week Seatbelt Use: always Sunscreen Use: Yes Assistive Devices: None Physical Exam Constitutional: WD/WN, vitals as above well developed and well nourished Respiratory: normal respiratory effort, lungs clear to auscultation normal respiratory effort Cardiovascular: RRR, no murmur, no edema Gastrointestinal (Abdomen): normal bowel sounds, soft, nontender, no hepatosplenomegaly Results & Data Vital Signs (Past 12 Hours) Vital Signs Temp Pulse Pulse Resp BP BP Pulse Ox 07/19/23 11:15 100.2 F H 07/19/23 10:38 76 07/19/23 08:40 88 15 108/67 97 07/19/23 06:38 97 H 18 112/62 97 07/19/23 05:50 96 07/19/23 05:23 107 H 18 109/60 96 07/19/23 05:09 109 H 07/19/23 04:56 98.4 F 119 H 18 93/51 L 98 O2 Del Method 07/19/23 11:15 07/19/23 10:38 07/19/23 08:40 Room Air 07/19/23 06:38 Room Air 07/19/23 05:50 Room Air 07/19/23 05:23 Room Air 07/19/23 05:09 07/19/23 04:56 Room Air Coding Level of Care Code 51630 IN/OBS CONSULT LVL 2,35M Diagnoses Sepsis A41.9 Encounter for care after hospital delivery Z39.2
[2023-07-19] MEDS: LEVOTHYROXINE SODIUM 25 MCG TABLET PO SCH (12:42)
[2023-07-19] MEDS: PRENATAL VITAMIN 1 TAB PO SCH ×2 (12:42→22:53)
--- NOTE | 2023-07-19 15:00 | Electrocardiogram Report ---
Test Reason : Blood Pressure : / mmHG Vent. Rate : 106 BPM Atrial Rate : 106 BPM P-R Int : 120 ms QRS Dur : 074 ms QT Int : 330 ms P-R-T Axes : 051 023 035 degrees QTc Int : 438 ms Sinus tachycardia Cannot rule out Anterior infarct (cited on or before 19-JUL-2023) Abnormal ECG When compared with ECG of 17-JUL-2022 12:25, Questionable change in initial forces of Septal leads T wave inversion no longer evident in Inferior leads T wave inversion no longer evident in Anterior leads Confirmed by Patrick Cox ([id number]) on 07/19/2023 3:00:19 PM Referred By: REFERRED SELF Confirmed By:Patrick Cox
[2023-07-19] MEDS ORDERED: CHLORASEPTIC (PHENOL) 1.4% SOLN 180 ML BTL MT PRN (15:45)
[2023-07-19] MEDS: ACETAMINOPHEN 325 MG TAB PO PRN (15:46)
[2023-07-19 18:23] LABS: A calco-baum cmplx NotReported Not Detected (NotDetected); Bact fragilis Not Reported Not Detected (NotDetected); Blood Culture Id Panel See PCR Comment (NotDetected); C auris Not Reported Not Detected (NotDetected); CTX-M Resistant Gene Not Detected (NotDetected); Calbicans Not Reported Not Detected (NotDetected); Candida glabrata Not Reported Not Detected (NotDetected); Candida krusei Not Reported Not Detected (NotDetected); Cneoformans/gatti Not Reported Not Detected (NotDetected); Cparapsilosis Not Reported Not Detected (NotDetected); E cloacae compx Not Reported Not Detected (NotDetected); Efaecalis Not Reported Not Detected (NotDetected); Efaecium Not Reported Not Detected (NotDetected); Enterobacterales DETECTED (NotDetected); Enterobacterales Not Reported DETECTED (NotDetected); Escherichia coli Not Reported DETECTED (NotDetected); H influenzae Not Reported Not Detected (NotDetected); IMP Resistant Gene Not Detected (NotDetected); K aerogenes Not Reported Not Detected (NotDetected); KPC Resistant Gene Not Detected (NotDetected); Koxytoca Not Reported Not Detected (NotDetected); Kpneumoniae grp Not Reported Not Detected (NotDetected); Lmonocyt Not Reported Not Detected (NotDetected); N meningitidis Not Reported Not Detected (NotDetected); NDM Resistant Gene Not Detected (NotDetected); OXA 48 Like Resistant Gene Not Detected (NotDetected); P aeruginosa Not Reported Not Detected (NotDetected); Proteus spp Not Reported Not Detected (NotDetected); Salmonella spp Not Reported Not Detected (NotDetected); Smarcescens Not Reported Not Detected (NotDetected); Staph lugdunensis Not Reported Not Detected (NotDetected); Staph spp. Not Reported Not Detected (NotDetected); Staphaureus Not Reported Not Detected (NotDetected); Staphepi Not Reported Not Detected (NotDetected); Stenmaltophilia Not Reported Not Detected (NotDetected); Strep agal(GrpB) Not Reported Not Detected (NotDetected); Strep pneum Not Reported Not Detected (NotDetected); Strep pyog (GrpA) Not Reported Not Detected (NotDetected); Strep spp Not Reported Not Detected (NotDetected); VIM Resistant Gene Not Detected (NotDetected); mcr-1 Colistin Resistant Gene Not Detected (NotDetected)
[2023-07-19] MEDS: CEFEPIME 1,000 MG in SYRINGE 0 ML IV SCH (20:51)
[2023-07-20] MEDS: SODIUM CHLORIDE 0.9% 1,000 ML IV SCH ×2 (02:30→14:59)
[2023-07-20] MEDS: LEVOTHYROXINE SODIUM 25 MCG TABLET PO SCH (05:52)
[2023-07-20 07:14] LABS: Basophils # (auto) 0.04 K/uL (0.00-0.20); Basophils % (auto) 0.3 %; Eosinophils # (auto) 0.02 K/uL (0.00-0.50); Eosinophils % (auto) 0.2 %; Hematocrit (blood only) 32.9 % (37.0-47.0); Immature Granulocytes # (auto) 0.25 K/uL (0.01-0.20); Immature Granulocytes % (auto) 1.9 %; Lymphocytes # (auto) 1.09 K/uL (1.20-3.40); Lymphocytes % (auto) 8.4 %; Mean Corpuscular Hemoglobin 31.2 pg (25.0-34.0); Mean Corpuscular Hgb Conc 33.4 g/dL (32.0-36.0); Mean Corpuscular Volume 93.2 fL (80.0-100.0); Mean Platelet Volume 10.2 fL (9.4-12.4); Monocytes % (auto) 7.7 %; Neutrophils # (auto) 10.51 K/uL (1.40-6.50); Neutrophils % (auto) 81.5 %; Platelet Count 156 K/uL (130-400); RDW Standard Deviation 51.4 fL (36.4-46.3); Red Blood Count 3.53 M/uL (4.20-5.40); White Blood Count 12.91 K/ul (4.8-10.8)
[2023-07-20] MEDS: CEFEPIME 1,000 MG in SYRINGE 0 ML IV SCH (07:28)
[2023-07-20 07:36] LABS: BUN Creatinine Ratio 18.6 (10-20); Calcium 7.9 mg/dl (8.6-10.3); Est GFR (African American) 128.3 ml/min; Est GFR (Non-African American) 110.7 ml/min; Potassium 3.5 mmol/L (3.5-5.1)
--- NOTE | 2023-07-20 07:46 | Obstetrical Progress Note ---
Date of Service July 20, 2023 Assessment & Plan (1) Sepsis: (2) UTI (urinary tract infection): (3) Encounter for care after hospital delivery: Plan Patient refers feeling better today, WBC are in decreasing trend Continue beast feeding and pumping No a necessarily an obstetrical related infection Blood and urine culture positive for gram negative bacilli, managed by hospitalist with abx No sign of mastitis, heavy bleeding or endometritis, do not seem as an obstetrical related infection. Will continue follow along Admission and Anticipated Discharge Date Admission Date: July 19, 2023 Supervising Physician Co-Signing Physician Notes Resident Physician Supervision Note: I was present with Dr. Mathew during the history and exam. I discussed the case with the resident and agree with the findings and plan as documented in the note. Any exceptions or clarifications are listed here: [None] Documented By: Delfino Colorado MD, FACOG Subjective An 38 y/o female post after vaginal delivery on July 13 Here due to sepsis and UTI. She is , refers she is pumping. Refers normal lochia. Seem to have positive blood and urine culture. No sign of mastitis, heavy bleeding or endometritis, do not seem as an obstetrical related infection. and Delivery Plans AMA Weekly NST's @ 36 weeks Hypothyroid *Check TFTs Q4wks Hx laparoscopic myomectomy, pedunculated and did not enter cavity -05/2022 note says ok for regular and delivery - R lateral fibroid enlarged to 7cm at 20wk, so check growth @ 32wk GDM on insulin *Wkly NSTs @32wks and Twice wkly @36wks *Serial growth US @28wks *Deliver by [facility] Jul 12 IOL Review of Systems Review of Systems: All systems reviewed & are unremarkable except as noted in HPI & below Physical Exam Constitutional: WD/WN, vitals as above Respiratory: normal respiratory effort, lungs clear to auscultation Gastrointestinal (Abdomen): normal bowel sounds, soft, nontender, no hepatosplenomegaly Fundus contracted below umbilicus Musculoskeletal: no cyanosis or clubbing, extremities motor strength 5/5 Results & Data Vital Signs (Past 12 Hours) Vital Signs Temp Pulse Pulse Resp BP Pulse Ox O2 Del Method 07/20/23 04:52 38 C H 105 H 18 126/69 96 Room Air 07/20/23 00:46 Room Air 07/19/23 22:00 37.1 C 91 H 20 139/72 95 Room Air 07/19/23 21:58 94 H Resident Activity Tracking Resident Involvement: Resident Care Provided Care Provided: OB Delivery
[2023-07-20] MEDS: PRENATAL VITAMIN 1 TAB PO SCH ×2 (08:32→19:44)
--- NOTE | 2023-07-20 12:21 | Hospitalist Progress Note ---
Date of Service July 20, 2023 Assessment & Plan (1) Sepsis: Plan: Present on admission. This appears to be due to urinary tract infection. Urine cultures growing gram-negative rods as is the blood culture. She is on cefepime, day 2. Infectious disease consultation has been requested. (2) UTI (urinary tract infection): Plan: Continue cefepime, day 2. Urine culture positive for gram-negative rods. Identification and sensitivities pending. Continue cefepime for now, day 2. (3) Normal vaginal delivery: Plan: 6 days . She is breast-feeding. OB consultation appreciated. Would like to know which oral antibiotic should be avoided due to breast-feeding since she will be on an oral antibiotic at discharge. (4) Hypothyroidism: Plan: Stable. Continue Synthroid replacement Plan Anticipate eventual discharge to home on oral antibiotic. Admission and Anticipated Discharge Date Admission Date: July 19, 2023 Subjective Alert and oriented. She wants to go home which is understandable since she just had a baby. However, blood cultures and urine cultures are growing gram- negative rods. She also had a low-grade fever last evening. She is on cefepime. Infectious disease consultation has been requested. Continue IV fluids for now Review of Systems 2 Review of Systems: Constitutional-chills. Low-grade fever. HEENT-no blurred vision, no double vision, no epistaxis, no sore throat Respiratory-no cough, no wheezing, no shortness of breath Cardiac-no palpitations, no chest pain, no syncope GI-no nausea, vomiting, diarrhea, melena, hematochezia -no urinary retention, no urinary incontinence, no dysuria, no hematuria Musculoskeletal-no joint pain, no muscle tenderness Skin-no bruising, no rashes, no pruritus Neuro-generalized weakness. Psych-no depression, no anxiety Physical Exam 2 Physical Exam: General-alert and oriented x3, no fevers, no chills HEENT-head atraumatic and normocephalic, pupils equal and reactive to light, extraocular muscles intact Neck-no lymphadenopathy or thyromegaly, trachea midline Chest-clear to auscultation percussion. No rales wheezing or rhonchi Cardiac-regular rate and rhythm, normal S1 and S2, no murmurs Abdomen-normal bowel sounds, no hepatosplenomegaly. Nontender. Distended from recent Extremities-no cyanosis, clubbing, or edema Neuro-cranial nerves II through XII intact, motor and sensory function within normal limits, strength symmetrical, no focal deficits Psych-normal affect, normal mood Results & Data Results & Data Vital Signs (Past 12 Hours) Vital Signs Temp Pulse Pulse Resp BP Pulse Ox O2 Del Method 07/20/23 12:14 37.2 C 99 H 16 117/74 96 Room Air 07/20/23 09:28 101 H 07/20/23 07:47 38.4 C H 99 H 14 122/70 98 Room Air 07/20/23 04:52 38 C H 105 H 18 126/69 96 Room Air 07/20/23 00:46 Room Air Laboratory Results 07/20/23 06:57 07/20/23 06:57 PG Care Time/CCT Total # of Minutes Spent Total Time Spent with Patient: Total time spent is greater than 50% in coordination of care (as documented) at patient's floor/unit and/or counseling patient: Coding Level of Care Code 36058 SUB INP/OBS CARE 3/50MIN Diagnoses Sepsis A41.9 UTI (urinary tract infection) N39.0 Normal vaginal delivery O80 Hypothyroidism E03.9
[2023-07-20] MEDS: ACETAMINOPHEN 325 MG TAB PO PRN ×2 (14:09→21:30)
[2023-07-20] MEDS: CEFEPIME 2,000 MG in SYRINGE 0 ML IV SCH ×2 (16:14→23:58)
[2023-07-21] MEDS: SODIUM CHLORIDE 0.9% 1,000 ML IV SCH (06:06)
[2023-07-21] MEDS: LEVOTHYROXINE SODIUM 25 MCG TABLET PO SCH (06:06)
[2023-07-21 06:34] LABS: Hematocrit (blood only) 34.7 % (37.0-47.0); Hemoglobin 11.4 g/dl (12.0-16.0); Mean Corpuscular Hemoglobin 31.1 pg (25.0-34.0); Mean Corpuscular Hgb Conc 32.9 g/dL (32.0-36.0); Mean Corpuscular Volume 94.8 fL (80.0-100.0); Platelet Count 184 K/uL (130-400); RDW Coefficient of Variation 14.6 % (11.5-14.5); RDW Standard Deviation 51.4 fL (36.4-46.3); Red Blood Count 3.66 M/uL (4.20-5.40); White Blood Count 10.45 K/ul (4.8-10.8)
[2023-07-21 06:55] LABS: Calcium 8.2 mg/dl (8.6-10.3); Creatinine Clr Calc Pharmacy 111.8 ml/min; Est GFR (African American) 133.5 ml/min; Est GFR (Non-African American) 115.2 ml/min; Potassium 3.8 mmol/L (3.5-5.1)
[2023-07-21 07:13] LABS: Basophils # (auto) 0.04 K/uL (0.00-0.20); Basophils % (auto) 0.4 %; Echinocytes 1+; Eosinophils # (auto) 0.06 K/uL (0.00-0.50); Eosinophils % (auto) 0.6 %; Immature Granulocytes # (auto) 0.22 K/uL (0.01-0.20); Immature Granulocytes % (auto) 2.1 %; Lymphocytes # (auto) 0.98 K/uL (1.20-3.40); Lymphocytes % (auto) 9.4 %; Monocytes # (auto) 0.64 K/uL (0.11-0.59); Monocytes % (auto) 6.1 %; Neutrophils # (auto) 8.51 K/uL (1.40-6.50); Neutrophils % (auto) 81.4 %; Polychromasia 1+
--- NOTE | 2023-07-21 07:37 | Communication Note ---
Date of Service: July 21, 2023 Chart reviewed and hospitalist progress notes read. E-Coli UTI with bacteremia noted. Response to antibiotic therapy seems promising, though she is not yet 24 hours free of fever. Review of results with +rhino/enterovirus on biofire panel also noted, but it's unclear if this is causing any symptoms or complicating her picture in any significant way. I see RSV mentioned in [facility] consult but that could be a typo, RSV looks negative on admission panel. Regardless her primary issue seems to be sepsis from a urinary source being successfully treated by primary team. Nursing notes show light lochia continues as expected and there do not appear to be concerns for endomyometritis at this time. I received a message via [facility] resident on service yesterday, early afternoon, asking if Keflex is acceptable for outpatient use during . I confirmed that it is, and am noting that here for the care team. I will be happy to assist with additional questions as Ms. Lewis is readied for transition to outpatient care.
[2023-07-21] MEDS: CEFEPIME 2,000 MG in SYRINGE 0 ML IV SCH ×2 (09:45→15:13)
[2023-07-21] MEDS: PRENATAL VITAMIN 1 TAB PO SCH ×2 (09:45→19:57)
--- NOTE | 2023-07-21 10:30 | Hospitalist Progress Note ---
Date of Service July 21, 2023 Assessment & Plan (1) Sepsis: Plan: Present on admission. This appears to be due to urinary tract infection. Urine and blood cultures growing E. coli. She is on cefepime, day 3. VACUUM CLEANER REPAIR PERSON consultation appreciated. She can go home on Keflex since this is safe with breast-feeding status . Infectious disease consultation has been requested. (2) UTI (urinary tract infection): Plan: Continue cefepime, day 3. Urine and blood culture positive for E. coli. Blood culture will be repeated today, July 21. Currently on cefepime, day 3. (3) Normal vaginal delivery: Plan: 7 days . She is breast-feeding. OB consultation appreciated. She has been cleared to take Keflex at the time of discharge (4) Hypothyroidism: Plan: Stable. Continue Synthroid replacement Plan Hopefully home tomorrow, July 22, on oral Keflex 500 mg 3 times a day for 10 more days Admission and Anticipated Discharge Date Admission Date: July 19, 2023 Subjective She looks and feels better. Low-grade fever this morning. IV fluids discontinued. White blood cell count trending down. Will repeat blood culture today, July 21. Hopefully this is now negative. Hopefully she can go home tomorrow on Keflex 500 mg 3 times a day for 10 more days. Appreciate INCLUSION TEACHER consultation and statement that Keflex should be fine with her breast-feeding status Review of Systems 2 Review of Systems: Constitutional-chills. Low-grade fever. HEENT-no blurred vision, no double vision, no epistaxis, no sore throat Respiratory-no cough, no wheezing, no shortness of breath Cardiac-no palpitations, no chest pain, no syncope GI-no nausea, vomiting, diarrhea, melena, hematochezia -no urinary retention, no urinary incontinence, no dysuria, no hematuria Musculoskeletal-no joint pain, no muscle tenderness Skin-no bruising, no rashes, no pruritus Neuro-generalized weakness. Psych-no depression, no anxiety Physical Exam 2 Physical Exam: General-alert and oriented x3, no fevers, no chills HEENT-head atraumatic and normocephalic, pupils equal and reactive to light, extraocular muscles intact Neck-no lymphadenopathy or thyromegaly, trachea midline Chest-clear to auscultation percussion. No rales wheezing or rhonchi Cardiac-regular rate and rhythm, normal S1 and S2, no murmurs Abdomen-normal bowel sounds, no hepatosplenomegaly. Nontender. Distended from recent Extremities-no cyanosis, clubbing, or edema Neuro-cranial nerves II through XII intact, motor and sensory function within normal limits, strength symmetrical, no focal deficits Psych-normal affect, normal mood Results & Data Results & Data Vital Signs (Past 12 Hours) Vital Signs Temp Pulse Pulse Resp BP Pulse Ox O2 Del Method 07/21/23 08:03 37.6 C H 97 H 13 119/75 96 Room Air 07/21/23 07:21 103 H 07/21/23 07:21 Room Air 07/21/23 03:00 37 C 80 18 119/73 97 Room Air 07/21/23 00:00 79 Laboratory Results 07/21/23 05:28 07/21/23 05:28 PG Care Time/CCT Total # of Minutes Spent Total Time Spent with Patient: Total time spent is greater than 50% in coordination of care (as documented) at patient's floor/unit and/or counseling patient: Coding Level of Care Code 89169 SUB INP/OBS CARE 235MIN Diagnoses Sepsis A41.9 UTI (urinary tract infection) N39.0 Normal vaginal delivery O80 Hypothyroidism E03.9
[2023-07-21] MEDS: ACETAMINOPHEN 325 MG TAB PO PRN (15:12)
[2023-07-22] MEDS: CEFEPIME 2,000 MG in SYRINGE 0 ML IV SCH (01:20)
[2023-07-22] MEDS: LEVOTHYROXINE SODIUM 25 MCG TABLET PO SCH (05:42)
[2023-07-22 07:30] LABS: Hematocrit (blood only) 37.3 % (37.0-47.0); Hemoglobin 12.9 g/dl (12.0-16.0); Mean Corpuscular Hemoglobin 31.7 pg (25.0-34.0); Mean Corpuscular Hgb Conc 34.6 g/dL (32.0-36.0); Mean Corpuscular Volume 91.6 fL (80.0-100.0); Mean Platelet Volume 9.9 fL (9.4-12.4); Platelet Count 226 K/uL (130-400); RDW Coefficient of Variation 14.5 % (11.5-14.5); RDW Standard Deviation 49.1 fL (36.4-46.3); Red Blood Count 4.07 M/uL (4.20-5.40)
[2023-07-22 07:48] LABS: BUN Creatinine Ratio 25.4 (10-20); Calcium 8.4 mg/dl (8.6-10.3); Est GFR (African American) 132.8 ml/min; Est GFR (Non-African American) 114.6 ml/min; Potassium 3.6 mmol/L (3.5-5.1)
[2023-07-22] MEDS ORDERED: cefTRIAXone SODIUM 2,000 MG in DEXTROSE 5 % MINI-B 50 ML IV SCH (08:00)
[2023-07-22 08:50] LABS: Basophils # (auto) 0.04 K/uL (0.00-0.20); Basophils % (auto) 0.4 %; Eosinophils # (auto) 0.13 K/uL (0.00-0.50); Eosinophils % (auto) 1.3 %; Immature Granulocytes # (auto) 0.34 K/uL (0.01-0.20); Immature Granulocytes % (auto) 3.3 %; Lymphocytes # (auto) 1.97 K/uL (1.20-3.40); Lymphocytes % (auto) 19.3 %; Monocytes # (auto) 0.79 K/uL (0.11-0.59); Monocytes % (auto) 7.7 %; Neutrophils # (auto) 6.93 K/uL (1.40-6.50); Polychromasia 1+
[2023-07-22] MEDS: PRENATAL VITAMIN 1 TAB PO SCH (09:20)
--- NOTE | 2023-07-22 09:21 | Discharge Summary ---
Discharge Summary Date of Service July 22, 2023 Notes For Next Care Provider Needs outpatient Renal US-ordered on discharge Medication Changes From Visit Augmentin 875mg po tid x 6 more days Admission HPI Per Admitting Provider Chief Complaint: weakness, rigors Primary Care Provider: Faviola Duke MD 38-year-old female who is 5 days vaginal delivery developed weakness and rigors with chills over the past few days. She presents to the ED last night with evidence of sepsis and UTI. She responded to IV fluids and has not needed pressor support. Urine analysis is consistent with UTI. Potassium and magnesium are mildly low and being replaced. Troponin is elevated but probably represents supply/demand mismatch. No chest pain and no acute EKG changes. Would not expect ischemic heart disease in this age group. Blood and urine cultures have been obtained. She has been started on cefepime. She is on IV fluids. She will be admitted for further evaluation and treatment and obstetrics will be consulted. Principal Dx & Hospital Course #1 = Principal Diagnosis (1) Septicemia: Present on admission. This appears to be due to urinary tract infection. Urine cx with E. coli and Corynebacterium urealyticum She is 1 week post and is at risk for UTI from recent as well as straight catheterization With fevers, leukocytosis, abnormal UA Blood cultures growing E. coli with same sensitivity profile as urine No further fevers, no flank pain, feeling much better since admission Repeat blood cxs remain NGTD from 07/21 Was treated with cefepime x 3 days and then converted to ceftriaxone x 1 dose on day of discharge POT FEEDER consultation appreciated-no evidence of POT FEEDER associated infection Infectious disease consultation appreciated--> after shared decision making, patient wishes to go home today and have close follow up with renal US as outpt (to assess for stone formation as per ID recommendations given Corynebacterium although this may just be a colonizer). If has stone burden on renal US, recommend close f/u with Urology ID recommends total of 10 days of AUgmentin 875mg po tid (higher dose for bacteremia)-I discussed her care with ID directly (2) UTI (urinary tract infection): as above (3) Demand ischemia of myocardium: troponin minimally elevated on arrival and downtrended after admission--> 117/131/73/83 CTA Chest neg for PE. No CP. No h/o cardiac disease ECG no ischemic changes Suspect myocardium demand ischemia in setting of sepsis No further eval needed (4) Rhinovirus infection: had mild sore throat which started on day of delivery, now improved supportive care (5) Normal vaginal delivery: Now 8 days . She is breast-feeding. OB consultation appreciated. Had GDM--plan for 6 weeks 2 hr OGTT with PCP (6) Hypothyroidism: Stable. Continue Synthroid replacement TSH here normal at 1.3 Plan DIspo-much improved, stable for dc to home Discussed her care with her on phone who is a Radiologist Discharge Exam Constitutional WD/WN, vitals as above Neck trachea midline, no thyromegaly Respiratory normal respiratory effort, lungs clear to auscultation Cardiovascular RRR, no murmur, no edema Chest (Breasts) Chest: normal inspection of chest Gastrointestinal (Abdomen) normal bowel sounds, soft, nontender, no hepatosplenomegaly Musculoskeletal Extremities: extremities normal to inspection; no cyanosis and no clubbing Skin no rashes, warm and dry Neurologic moves all extremities and awake; no focal motor deficits Psychiatric A+Ox3, euthymic affect Lymphatic no lymphedema Updated Medication List Medication Instructions Recorded Confirmed Type bejavour-xwn-Pr-FA 1 mg 1 tab PO BID 05/14/22 07/19/23 History tablet levothyroxine 25 mcg tablet 25 mcg PO QAM #90 tabs 04/24/23 07/19/23 Rx walker #1 ea 07/15/23 Rx amoxicillin 875 mg-potassium 1 tab PO TID #19 tabs 07/22/23 Rx clavulanate 125 mg tablet Hospital Stay Data Consultations 07/19/23 07:32 ED Decision to Admit Stat 07/19/23 08:10 Consult Obstetrics Routine 07/20/23 08:48 Consult Infectious Diseases Routine Diagnostic Imagining Performed 07/19/23 06:23 CT angio chest PE protocol Stat Pending Results Patient Have Any Pending Studies at Discharge: Yes (Final repeat blood cultures- no growth to date) Discharge Instructions Given to Patient (Per Discharging Provider) Please finish out the course of Augmentin 875mg twice a day for 6 more days. If you develop worsening back pain, nausea or vomiting, or recurrent fevers, please call your doctor or return to the hospital for further care. A renal ultrasound will be ordered for you as an outpatient to look for kidney stones. Your PCP can follow up on the results of this. Total Time Total Time Spent Total Time Spent (In Minutes): 45 min Coding Level of Care Code 43529 INP/OBS DISCH >30 MIN Diagnoses Septicemia A41.9 UTI (urinary tract infection) N39.0 Demand ischemia of myocardium I24.89 Rhinovirus infection B34.8 Normal vaginal delivery O80 Hypothyroidism E03.9
--- NOTE | 2023-07-22 09:58 | Infectious Disease Consult ---
Date of Consultation July 22, 2023 Assessment & Plan (1) Septicemia: (2) E. coli septicemia: (3) UTI (urinary tract infection): (4) Sepsis: (5) Encounter for care after hospital delivery: (6) Bacteria in urine: Plan Holly Joshua is a 38-year-old woman with history of hypothyroidism, fibroids s/p laparoscopic myomectomy, with recent vaginal delivery on 07/13/23, who presents to [facility] on 07/19/23 with rigors, chills, and weakness, found to have E. coli UTI with sepsis and bacteremia; BCx grew E. coli and UCx grew E. coli and Corynebacterium urealyticum. Also found to be positive for rhinovirus/enterovirus. Appears to be E. coli bacteremia of urinary source. Patient has been evaluated by OB, and at this time without mastitis, heavy bleeding, s/sx endometritis, and thus per OB there does not appear to be an obstetrical source of infection. For the E. coli UTI and bacteremia, approved rapidly with abx. Repeat BCx from 07/21 NGTD. Can continue ceftriaxone while inpatient. 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 Can change to Augmentin (higher-dose) to complete a 10-day course for UTI and bacteremia, which should be compatible with nursing. Patient without prior history of UTIs (and note UCx from 12/2022 and 04/2023 without pathogens). The significance of the Corynebacterium urealyticum is unclear. This is a common colonizer, and the patient was recently in the hospital to give . The bacteria was isolated only in the urine rather than in the blood, and her symptoms improved with treatment targeting the E. coli. While the Corynebacterium is most likely a colonizer, do note that it can be associated with bladder/renal stone formation (no prior history of stones). Would consider renal US for further evaluation to evaluate for stones. ID Problem List: 1.E. coli UTI with sepsis and bacteremia 2.Urine culture positive for E. coli and Corynebacterium urealyticum 3. 4.Enterovirus/rhinovirus infection Recommendations: - Can change to amoxicillin-clavulanate 875 mg PO TID to complete a 10-day course (07/19-07/28/23) - Close follow-up with PCP - Consider renal US to evaluate for stones, potentially as an outpatient Plan discussed with hospitalist. Thank you for letting ID participate in the care of this patient. ID will sign off at this time. If questions, please contact the [facility] call center at . Jyoti Cantu MD, MHS Infectious Diseases [facility] direct line: [phone] Consultation Information Consultation was provided via telemedicine using two-way real-time interactive telecommunication between the patient and the telemedicine provider. For the duration of the visit, the provider was performing the assessment from a different facility than the patient. This includesuse of bluetooth stethoscope forauscultationperformed by the telepresenter that the telemedicine provider can hear if described in the physical exam. [employer] contact information: Please call [facility] Call Center . (Phone Number For Physician Use Only) After establishing a telemedicine visit, patient was: Patient was verified with two unique identifiers, Patient/authorized rep acknowledged consent and unders tanding and Gave permission to continue telehealth session Time Spent with Patient: Initial => 55 min History of Present Illness Reason for Consultation: E. coli UTI and bacteremia Requesting Physician: Holly Joshua is a 38-year-old woman with history of hypothyroidism, fibroids s/p laparoscopic myomectomy, with recent vaginal delivery on 07/13/23, who presents to [facility] on 07/19/23 with rigors, chills, and weakness, found to have E. coli UTI with sepsis and bacteremia; BCx grew E. coli and UCx grew E. coli and Corynebacterium urealyticum. Also found to be positive for rhinovirus/enterovirus. The patient reports that she had chills for ~40 minutes immediately after delivery, but that these resolved. She developed recurrent chills when at home. She also developed heart racing and palpitations. The chills progressed to the point of severe shaking rigors. She did not have any fevers. No dysuria, though says that since she is she may not have noticed urinary symptoms as easily. She has no prior history of UTIs. She has not taken any recent antibiotics. She also noticed a lot of sneezing and congestion symptoms in the last few days. In the ED, febrile to TMax 39.4. WBC 13. 07/19 UCx: E. coli, Corynebacterium ur ealyticum (07/19 UA: +nitrite 3+ LE >30 WBCs, >30 RBCs, >30 epithelial cells, 4+ bacteria). BCx grew E. coli and UCx grew E. coli and Corynebacterium. RVP +rhinovirus/enterovirus. At the time of evaluation, she reports feeling much better, almost immediately after antibiotics. She still feels cold but has no further rigors or palpitations. 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 Attending Physician: Precious Murphy MD Allergies Allergy/AdvReac Type Severity Reaction Status Date / Time Latex, Natural Rubber Allergy Mild Rash Verified 07/12/23 23:44 Sulfa (Sulfonamide AdvReac Mild flu like Verified 07/12/23 23:44 Antibiotics) symptoms Home Medications Medication Instructions Recorded Confirmed Type budjques-wog-Jq-FA 1 mg 1 tab PO BID 05/14/22 07/19/23 History tablet levothyroxine 25 mcg tablet 25 mcg PO QAM #90 tabs 04/24/23 07/19/23 Rx walker #1 ea 07/15/23 Rx amoxicillin 875 mg-potassium 1 tab PO TID #19 tabs 07/22/23 Rx clavulanate 125 mg tablet Patient History Medical History Fibroid, uterine Right lateral fibroid 7cm Gestational diabetes On insulin Hypothyroid on medications History of chicken pox Hemoperitoneum Surgical History S/P myomectomy laparoscopic, did not disrupt myometrium per 05/2022 note Status post hysteroscopic polypectomy H/O wisdom tooth extraction Family History Mother Depression Hypertension Dyslipidemia Father Dementia Diabetes Gout Kidney disease Brother No problems noted. Brother No problems noted. Brother No problems noted. Sister No problems noted. Denies family history of Ovarian cancer Prostate cancer Myocardial infarction Breast cancer Colorectal cancer Social History (Updated 07/12/23 @ 23:44 by Barbara Dewitt RN) Smoking Status: Never smoker Second Hand Exposure: No; Do You Dip or Chew Tobacco: No; Hx Alcohol Use: No Hx Substance Use: No Preferred Language: Moroccan Communication Ability: Effective Visual Impairment: No Limitations Hearing Ability: Normal Emergency Room Physician Required: No Beliefs That Will Affect Care: None marital status: marital status details: Asa Zimmerman (35) [phone] Current Living Situation: Spouse and Family Current Living Situation Comment: Lives with Asa current occupational status: employed current occupation: [employer] How many Children do You have: 0 Feels Safe at Home: Yes Childhood Exposure to Second-Hand Smoke: Yes Diet: regular caffeine: No during the past year weight has: increased > 10 lbs Dental Care, Regularly: Yes Physical Activity Frequency: 1-2 Times per Week Seatbelt Use: always Sunscreen Use: Yes Assistive Devices: None Physical Exam Physical Exam: Exam obtained with aid of in-person telepresenter. General: Well-appearing, no acute distress HEENT: Conjunctivae non-injected, sclerae anicteric, MMM, OP clear. CV: RRR, normal S1/S2; no murmurs, rubs, or gallops. Resp: CTAB; no wheezes, rales, or rhonchi. Respirations nonlabored. Abd: Soft, nontender, nondistended. : No suprapubic tenderness, no flank pain Ext: Warm and well-perfused, no edema. No joint warmth or effusions noted. Skin: No rashes or lesions. Neuro: Alert & interactive. Grossly non-focal. Psych: Pleasant, appropriate. Results & Data Vital Signs (Past 12 Hours) Vital Signs Temp Pulse Pulse Pulse Resp BP Pulse Ox 07/22/23 09:33 37.0 C 95 H 83 12 104/70 93 07/22/23 09:26 07/22/23 07:26 86 07/22/23 07:17 37.0 C 83 12 104/70 93 07/22/23 04:00 37.3 C 101 H 20 116/70 97 07/22/23 00:00 80 07/21/23 22:00 36.9 C 76 18 108/68 92 O2 Del Method 07/22/23 09:33 07/22/23 09:26 Room Air 07/22/23 07:26 07/22/23 07:17 Room Air 07/22/23 04:00 Room Air 07/22/23 00:00 07/21/23 22:00 Room Air Diagnostic Findings Diagnostics: 07/19 CT chest CTA CTA: There is adequate opacification of the pulmonary arteries to the level of the subsegmental branches without convincing evidence of acute pulmonary embolism. Normal thoracic aorta.Heart size is normal. CT CHEST: No dominant thyroid nodule is seen. No pathologically adenopathy by CT size criteria. There is no pneumothorax, pleural effusion or focal airspace co nsolidation. The imaged upper abdominal structures are normal. The osseous structures appear intact. 07/17/22 CTA A/P CT ABDOMEN/PELVIS: Trace pleural effusions. Mild dependent subsegmental bibasilar atelectasis. No pneumatosis or pneumoperitoneum. Unremarkable spleen, pancreas, gallbladder and adrenal glands. Unremarkable liver. Kidneys are unremarkable. No hydronephrosis. Partially decompressed urinary bladder. No lymphadenopathy. No bowel obstruction or bowel wall thickening. The visualized appendix appears unremarkable. The soft tissues are within normal limits. No acute fracture. IMPRESSION: 1. Moderate hemoperitoneum secondary to active extravasation within the left hemipelvis which arises from a branch of the internal iliac artery, likely the uterine artery. 2. Fibroid uterus redemonstrated. 3. Trace pleural effusions. Micro Summary: 07/21 BCx x2 NGTD 07/19 UCx: E. coli, Corynebacterium urealyticum (07/19 UA: +nitrite 3+ LE >30 WBCs, >30 RBCs, >30 epithelial cells, 4+ bacteria). 07/19 BCx x2: E. coli (R-Bactrim, R-ampicillin, I-amp/sulb; otherwise S including S-amox/clav) 07/19 RVP: + enterovirus/rhinovirus 06/20 GBS Cx: neg 04/25/23 and 12/13/22 UCx: mixed rachell Antibiotic Summary: ceftriaxone (07/22-present) Prior cefepime (07/19-07/21) Abx Allergies: Sulfa (flu-like symptoms)
== END 2023-07-22 10:24 | disposition home or self-care (01) | DRG 776 ==
LOC: ED 04:47 → SUATTDRO 08:10 → EDINP 08:10 → 2N 11:31